=== PATIENT | female | born 1990 | race Caucasian/White ===

== ENCOUNTER 2018-12-11 17:48 | Emergency (ER) | payer SELFPAY ==
--- NOTE | 2018-12-11 18:27 | EKG REPORT ---
SEVERITY:- ABNORMAL ECG - SINUS RHYTHM INCOMPLETE RIGHT BUNDLE BRANCH BLOCK : Confirmed by: Kavon Webb MD 11-Dec-2018 18:27:03
[2018-12-11 18:48] LABS: ABSOLUTE BASOPHILS # (AUTO) 0.1 10^3/uL (0.0-0.2); ABSOLUTE EOSINOPHILS # (AUTO) 0.1 10^3/uL (0.0-0.6); ABSOLUTE LYMPHOCYTES (AUTO) 2.2 10^3/uL (0.5-4.7); ABSOLUTE MONOCYTES (AUTO) 0.8 10^3/uL (0.1-1.4); ABSOLUTE NEUT (AUTO) 6.4 10^3/uL (1.7-8.2); BASOPHILS % (AUTO) 0.7 % (0-2); EOSINOPHILS % (AUTO) 0.9 % (0-6); HEMATOCRIT 36.1 % (36.0-47.0); HEMOGLOBIN 12.6 g/dL (12.0-15.5); LYMPHOCYTES % (AUTO) 23.4 % (13-45); MEAN CORPUSCULAR HEMOGLOBIN 29.9 pg (27.0-33.4); MEAN CORPUSCULAR VOLUME 85 fl (80-97); MONOCYTES % (AUTO) 8.1 % (3-13); PLATELET COUNT 220 10^3/uL (150-450); RED BLOOD COUNT 4.22 10^6/uL (3.72-5.28); RED CELL DISTRIBUTION WIDTH 13.7 % (11.5-14.0); SEGMENTED NEUTROPHILS % (AUTO) 66.9 % (42-78); TOTAL CELLS COUNTED % (AUTO) 100 %; WHITE BLOOD COUNT 9.6 10^3/uL (4.0-10.5)
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
[2018-12-11 19:06] LABS: ALANINE AMINOTRANSFERASE 19 U/L (9-52); ALBUMIN 4.7 g/dL (3.5-5.0); ALKALINE PHOSPHATASE 60 U/L (38-126); ANION GAP 10 (5-19); ASPARTATE AMINO TRANSFERASE 15 U/L (14-36); BILIRUBIN,DIRECT 0.2 mg/dL (0.0-0.4); BILIRUBIN,TOTAL 0.9 mg/dL (0.2-1.3); BLOOD UREA NITROGEN 12 mg/dL (7-20); CARBON DIOXIDE 24 mmol/L (22-30); CHLORIDE 107 mmol/L (98-107); GLUCOSE 89 mg/dL (75-110); POTASSIUM 3.7 mmol/L (3.6-5.0); SODIUM 141.4 mmol/L (137-145); TOTAL PROTEIN 7.4 g/dL (6.3-8.2)
[2018-12-11] MEDS ORDERED: DIAZEPAM 5 MG TABLET PO ONE (19:45)
[2018-12-11] MEDS ORDERED: LIDOCAINE 5% (700 MG) TRANSDERMAL ADH..PATCH TP ONE (19:45)
[2018-12-11 20:02] LABS: APPEARANCE,URINE SLIGHTLY-CLOUDY; BILIRUBIN,URINE NEGATIVE (NEGATIVE); COLOR,URINE YELLOW; GLUCOSE, URINE NEGATIVE (NEGATIVE); KETONES,URINE 20 mg/dL (NEGATIVE); LEUKOCYTE ESTERASE,URINE NEGATIVE (NEGATIVE); NITRITE,URINE NEGATIVE (NEGATIVE); PROTEIN,URINE NEGATIVE (NEGATIVE); UROBILINOGEN,URINE NEGATIVE mg/dL (<2.0)
--- NOTE | 2018-12-11 20:37 | ER Document Report ---
ED General - General Chief Complaint: Breathing Difficulty Stated Complaint: TROUBLE BREATHING Time Seen by Provider: 12/11/18 19:33 Notes: Patient is a 28-year-old female with past medical history of anxiety and panic attacks who presents with anxiety and feelings like she cannot breathe. Patient states that her symptoms started shortly prior to arrival. States that she had associated chest tightness and feeling like she could not get enough air in. Symptoms were regarded as severe and constant when present have abated somewhat since onset. States that she felt extremely anxious during this episode and that this feels very similar to when she had panic attacks in the past. Nothing has been noted to improve her symptoms, states no obvious triggering factor. Has not seen her primary doctor regarding today's concerns. Denies any history of DVT or pulmonary embolus. Does not use any form of estrogen. Denies any pleuritic discomfort or distinct chest discomfort. TRAVEL OUTSIDE OF THE [place] IN LAST 30 DAYS: No Past Medical History - General Information source: Patient - Social History Smoking Status: Current Some Day Smoker Chew tobacco use (# tins/day): No Frequency of alcohol use: Rare Drug Abuse: None Lives with: Spouse/Significant other Family History: Reviewed & Not Pertinent Patient has suicidal ideation: No Patient has homicidal ideation: No Renal/ Medical History: Denies: Hx Peritoneal Dialysis Past Surgical History: Reports: Hx Tonsillectomy Review of Systems - Review of Systems Notes: Constitutional: Negative for fever. HENT: Negative for sore throat. Eyes: Negative for visual changes. Cardiovascular: Negative for chest pain. Respiratory: Positive for shortness of breath. Gastrointestinal: Negative for abdominal pain, vomiting or diarrhea. Genitourinary: Negative for dysuria. Musculoskeletal: Negative for back pain. Skin: Negative for rash. Neurological: Negative for headaches, weakness or numbness. 10 point ROS negative except as marked above and in HPI. Physical Exam - Vital signs Vitals: Temp Pulse BP Pulse Ox 98.4 F 129 H 138/98 H 96 12/11/18 17:52 12/11/18 17:52 12/11/18 17:52 12/11/18 17:52 Interpretation: Tachycardic Notes: PHYSICAL EXAMINATION: GENERAL: Well-appearing, well-nourished and in no acute distress. HEAD: Atraumatic, normocephalic. EYES: Pupils equal round and reactive to light, extraocular movements intact, sclera anicteric, conjunctiva are normal. ENT: nares patent, oropharynx clear without exudates. Moist mucous membranes. NECK: Normal range of motion, supple without lymphadenopathy LUNGS: Breath sounds clear to auscultation bilaterally and equal. No wheezes rales or rhonchi. HEART: Regular rate and rhythm without murmurs ABDOMEN: Soft, nontender, normoactive bowel sounds. No guarding, no rebound. No masses appreciated. EXTREMITIES: Normal range of motion, no pitting or edema. No cyanosis. NEUROLOGICAL: No focal neurological deficits. Moves all extremities spontaneously and on command. PSYCH: Anxious SKIN: Warm, Dry, normal turgor, no rashes or lesions noted. Course - Re-evaluation Re-evalutation: 12/11/18 20:34 Patient presents with 2 weeks of intermittent chest heaviness, throat tightness and feeling like she cannot breathe. Patient admits to feeling extremely anxious and believes that this is the cause of her symptoms. At the time of presentation patient admits that she was having acute panic attack and her initial heart rate was noted to be markedly elevated although this has spontaneously resolved since she stays calm down. Heart rate a time my assessment is a 79 bpm. Low clinical suspicion for ACS given clinical history, exam, EKG without ST elevations or depressions, and negative initial troponin. HEART score less than or equal to 3. PE also seems unlikely given clinical history, absence of tachycardia or dyspnea. Patient is PERC criteria negative at time of my evaluation. CXR without evidence of pneumothorax or pneumonia. No widened mediastinum. Aortic dissection also seems unlikely given history, symmetric pulses, CXR, and vitals. Patient has had much improvement after symptom medic treatment with anxiolysis here in the emergency department. Do not believe serial troponin markers are indicated given duration of symptoms and low clinical suspicion for ACS. At this time will discharge with return precautions and follow-up recommendations. Verbal discharge instructions given a the bedside and opportunity for questions given. Medication warnings reviewed. Patient is in agreement with this plan and has verbalized understanding of return precautions and the need for primary care follow-up in the next 24-72 hours. - Vital Signs Vital signs: Temp Pulse Resp BP Pulse Ox 97.8 F 129 H 17 133/82 H 98 12/11/18 21:12 12/11/18 17:52 12/11/18 22:26 12/11/18 22:26 12/11/18 22:26 - Laboratory Result Diagrams: 12/11/18 18:36 12/11/18 18:36 Laboratory results interpreted by me: 12/11/18 19:41 Urine Ketones 20 H Urine Blood SMALL H - Diagnostic Test Radiology reviewed: Image reviewed, Reports reviewed Radiology results interpreted by me: 12/11/18 20:36 Chest x-ray: No acute infiltrate or pneumothorax - EKG Interpretation by Me Additional EKG results interpreted by me: 12/11/18 20:37 Sinus rhythm, rate 105, no ST elevations or depressions. QTC 450. Discharge - Discharge Clinical Impression: Difficulty breathing, Intermittent chest pain Condition: Good Disposition: HOME, SELF-CARE Additional Instructions: You were seen today for chest pain. The exact cause of your pain is unclear. However, based on your cardiac enzyme testing, chest x-ray, and EKG it does not appear that it is from an immediately life-threatening cause at this time. Although your testing here is normal is critical that you follow-up with your primary care physician for continued evaluation of this chest pain and possible stress testing. I recommended you see your physician within the next 24-48 hours to be evaluated for consideration of a stress test. Please return to emergency department immediately if you have worsening of your chest pain, shortness of breath, vomiting, become unable to exert yourself due to pain or difficulty breathing, you pass out, or have any pain that radiates into your arms, jaw, or back. Please also return if you have any additional symptoms that are concerning to you.
[2018-12-11] MEDS ORDERED: METOCLOPRAMIDE HCL INJ/PF 10 MG/2 ML SDV IV ONE (22:17)
[2018-12-11 22:45] VITALS: BP 133/82
--- NOTE | 2018-12-12 07:53 | EKG REPORT ---
SEVERITY:- NORMAL ECG - SINUS RHYTHM SINSUS ARRHYTHMIA : Confirmed by: Kavon Webb MD 12-Dec-2018 07:53:00
== END 2018-12-11 22:44 | disposition home or self-care (01) ==
LOC: ER 17:48
DX: R06.00 Dyspnea, unspecified (principal); R07.9 Chest pain, unspecified
CPT/HCPCS: 93005; 99285; 96374; 36415; 84703; 85025; 80053; 81001; 84484; 71045; 93010; J2765

== ENCOUNTER 2019-07-25 08:05 | Emergency (ER) | payer SELFPAY ==
[2019-07-25 09:43] LABS: APPEARANCE,URINE SLIGHTLY-CLOUDY; BILIRUBIN,URINE NEGATIVE (NEGATIVE); COLOR,URINE YELLOW; GLUCOSE, URINE NEGATIVE (NEGATIVE); KETONES,URINE TRACE mg/dL (NEGATIVE); PROTEIN,URINE NEGATIVE (NEGATIVE); URINE SPECIFIC GRAVITY 1.021; UROBILINOGEN,URINE NEGATIVE mg/dL (<2.0)
--- NOTE | 2019-07-25 09:55 | ER Document Report ---
HPI - HPI Time Seen by Provider: 07/25/19 09:54 Pain Level: 4 - GASTROINTESTINAL Gastrointestinal: REPORTS: Abdominal Pain - REPRODUCTIVE Reproductive: DENIES: : Past Medical History - Social History Smoking Status: Never Smoker Chew tobacco use (# tins/day): No Frequency of alcohol use: None Drug Abuse: None Family History: Reviewed & Not Pertinent Patient has suicidal ideation: No Patient has homicidal ideation: No Renal/ Medical History: Denies: Hx Peritoneal Dialysis Past Surgical History: Reports: Hx Tonsillectomy Vertical Provider Document - INFECTION CONTROL TRAVEL OUTSIDE OF THE [place] IN LAST 30 DAYS: No Course - Vital Signs Vital signs: Temp Pulse Resp BP Pulse Ox 98.2 F 54 L 16 132/81 H 99 07/25/19 08:17 07/25/19 08:17 07/25/19 08:17 07/25/19 08:17 07/25/19 08:17 - Laboratory Laboratory results interpreted by me: 07/25/19 09:25 Urine Ketones TRACE H Urine Ascorbic Acid 40 H
--- NOTE | 2019-07-25 09:59 | ER Document Report ---
ED General - General Chief Complaint: Back Pain Stated Complaint: BACK PAIN Time Seen by Provider: 07/25/19 09:54 Primary Care Provider: PABLO ELMORE DO [ACTIVE STAFF] - Follow up as needed ALIYA NIX MD [ACTIVE STAFF] - Follow up as needed TRAVEL OUTSIDE OF THE [place] IN LAST 30 DAYS: No - HPI Notes: 28-year-old female with a history of PCO S presents emergency room for complaints abdominal pain that feels like "previous ectopic ". Patient states pain is near lower back but is well as upper quadrants of her abdomen. Denies worse after eating. Denies any fevers or chills. Patient did report nausea this morning but no vomiting. 2 para 1. Patient states last menstrual period was June 14, she has irregular periods, does not think she is and has been trying to get for years and is unsuccessful. Patient did have entopic approximately 6 years ago. Denies fevers, chills, chest pain,palpitations, shortness of breath, dyspnea, vomiting, diarrhea, , hematuria,blurred vision, double vision, loss of vision, speech changes, LH, dizziness, syncope, headaches, wheezing, ST, URI, neck pain, weakness, bowel or bladder dysfunction, saddle anesthesia, numbness or tingling in bilateral upper or lower extremities equally, muscle paralysis, weakness in bilateral upper or lower extremities equally or rash. - Related Data Allergies/Adverse Reactions: No Known Allergies Allergy (Unverified 07/25/19 08:45) Home Medications: Multivitamin Past Medical History - General Information source: Patient - Social History Smoking Status: Never Smoker Chew tobacco use (# tins/day): No Frequency of alcohol use: None Drug Abuse: None Family History: Reviewed & Not Pertinent Patient has suicidal ideation: No Patient has homicidal ideation: No Renal/ Medical History: Denies: Hx Peritoneal Dialysis Past Surgical History: Reports: Hx Tonsillectomy Review of Systems - Review of Systems Constitutional: See HPI EENT: No symptoms reported Cardiovascular: No symptoms reported Respiratory: No symptoms reported Gastrointestinal: See HPI Genitourinary: No symptoms reported Female Genitourinary: No symptoms reported Musculoskeletal: No symptoms reported Skin: No symptoms reported Hematologic/Lymphatic: No symptoms reported Neurological/Psychological: No symptoms reported Physical Exam - Vital signs Vitals: Temp Pulse Resp BP Pulse Ox 98.2 F 54 L 16 132/81 H 99 07/25/19 08:17 07/25/19 08:17 07/25/19 08:17 07/25/19 08:17 07/25/19 08:17 - Notes Notes: PHYSICAL EXAMINATION: reviewed vital signs by RN GENERAL: Well-appearing, well-nourished and in no acute distress. HEAD: Atraumatic, normocephalic. EYES: Pupils equal round and reactive to light, extraocular movements intact, conjunctiva are normal. ENT: Nares patent, oropharynx clear without exudates. Moist mucous membranes. NECK: Normal range of motion, supple without lymphadenopathy LUNGS: Breath sounds clear to auscultation bilaterally and equal. No wheezes rales or rhonchi. HEART: Regular rate and rhythm without murmurs ABDOMEN: right upper quadrant abdominal pain soft, nondistended abdomen. No guarding, no rebound. No masses appreciated. No CVA tenderness appreciated Female : deferred Musculoskeletal: Normal range of motion, no pitting or edema. No cyanosis. NEUROLOGICAL: Cranial nerves grossly intact. Normal speech, normal gait. Normal sensory, motor exams PSYCH: Normal mood, normal affect. SKIN: Warm, Dry, normal turgor, no rashes or lesions noted. Course - Re-evaluation Re-evalutation: 07/25/19 14:46 Afebrile vital stable no distress. Nurse's notes reviewed. Urine does show that patient is in fact positive for , serum hCG is 167, patient is likely in the very beginnings of her . CBC negative for leukocytosis or anemia, CMP negative for hepatic or renal dysfunction, lipase negative. Transvaginal ultrasound negative for any acute findings, no ectopic or intrauterine noted however patient is very early in her . Advised to recheck a serum hCG as well as a pelvic ultrasound today determine if patient is experiencing ectopic especially so she is experiencing any lower ab dominal pain. Discussed the importance of keeping on top of this because she states she has had a history of an ectopic in the past with routine ultrasounds and routine serum hCGs cancel CT abdomen pelvis, did not abdominal ultrasound which was unremarkable aside from showing a fatty liver, which patient states she was aware of. Patient was made aware that she is in fact , to start vitamins. Patient was happy for this finding. States she will follow-up with a PASS WORKER in her primary care provider within the next few days. Discussed to avoid any alcohol, illicit drug use, caffeine or other substances to avoid . Patient given vitamin to start da fely. After performing a Medical Screening Examination, I estimate there is LOW risk for ACUTE APPENDICITIS, BOWEL OBSTRUCTION, ACUTE CHOLECYSTITIS, PERFORATED DIVERTICULITIS, INCARCERATED HERNIA, PANCREATITIS, PELVIC INFLAMMATORY DISEASE, PERFORATED ULCER, ECTOPIC , or TUBO-OVARIAN ABSCESS, thus I consider the discharge disposition reasonable. Also, there is no evidence or peritonitis, sepsis, or toxicity. I have reevaluated this patient multiple times and no significant life threatening changes are noted. The patient and I have discussed the diagnosis and risks, and we agree with discharging home with close follow-up with the understanding that symptoms and presentations can change. We also discussed returning to the Emergency Department immediately if new or worsening symptoms occur. We have discussed the symptoms which are most concerning (e.g., bloody stool, fever, changing or worsening pain, vomiting) that necessitate immediate return. - Vital Signs Vital signs: Temp Pulse Resp BP Pulse Ox 98.4 F 85 20 133/79 H 97 07/25/19 13:53 07/25/19 13:53 07/25/19 13:53 07/25/19 13:55 07/25/19 13:53 - Laboratory Result Diagrams: 07/25/19 10:38 07/25/19 10:38 Laboratory results interpreted by me: 07/25/19 07/25/19 07/25/19 09:25 09:25 10:38 Creatinine 0.51 L Beta HCG, Quant Urine Ketones TRACE H Urine Ascorbic Acid 40 H Urine HCG, Qual POSITIVE H 07/25/19 10:38 Creatinine Beta HCG, Quant 167.68 H Urine Ketones Urine Ascorbic Acid Urine HCG, Qual Discharge - Discharge Clinical Impression: , Abdominal pain Condition: Stable Disposition: HOME, SELF-CARE Additional Instructions: You tested positive for , advised to start prenatals. You will need a repeat hCG as well as a transvaginal ultrasound in 48 hours for reevaluation since you are newly , unable to tell if you are having ectopic or having an intrauterine due to the fact that he is newly . Ultrasound of your abdomen was negative, did show fatty liver which is likely a chronic finding. Advised to follow-up with an PASS WORKER as well as your primary care provider. Avoid any alcohol, smoking or any illicit substances. Increase oral hydration. Return to the emergency room if your symptoms become worse such as fevers, worsening abdominal pain. Return immediately for any new or worsening symptoms. Follow up with primary care provider, call tomorrow to make followup appointment. Prescriptions: Vits96/Iron Fum/Folic [ Tablet] 1 each PO DAILY #30 tablet Forms: Return to Work Referrals: ALIYA NIX MD [ACTIVE STAFF] - Follow up as needed PABLO ELMORE DO [ACTIVE STAFF] - Follow up as needed
[2019-07-25 10:47] LABS: ABSOLUTE BASOPHILS # (AUTO) 0.1 10^3/uL (0.0-0.2); ABSOLUTE EOSINOPHILS # (AUTO) 0.1 10^3/uL (0.0-0.6); ABSOLUTE LYMPHOCYTES (AUTO) 1.8 10^3/uL (0.5-4.7); ABSOLUTE MONOCYTES (AUTO) 0.6 10^3/uL (0.1-1.4); ABSOLUTE NEUT (AUTO) 5.4 10^3/uL (1.7-8.2); BASOPHILS % (AUTO) 0.8 % (0-2); EOSINOPHILS % (AUTO) 1.8 % (0-6); HEMATOCRIT 38.2 % (36.0-47.0); HEMOGLOBIN 13.2 g/dL (12.0-15.5); MEAN CORPUSCULAR HEMOGLOBIN 29.7 pg (27.0-33.4); MEAN CORPUSCULAR HGB CONC 34.7 g/dL (32.0-36.0); MEAN CORPUSCULAR VOLUME 86 fl (80-97); MONOCYTES % (AUTO) 7.3 % (3-13); PLATELET COUNT 200 10^3/uL (150-450); RED BLOOD COUNT 4.45 10^6/uL (3.72-5.28); RED CELL DISTRIBUTION WIDTH 13.3 % (11.5-14.0); SEGMENTED NEUTROPHILS % (AUTO) 68.1 % (42-78); TOTAL CELLS COUNTED % (AUTO) 100 %
[2019-07-25 11:13] LABS: ALBUMIN 4.7 g/dL (3.5-5.0); ALKALINE PHOSPHATASE 69 U/L (38-126); ANION GAP 13 (5-19); ASPARTATE AMINO TRANSFERASE 19 U/L (14-36); BILIRUBIN,DIRECT 0.2 mg/dL (0.0-0.4); BILIRUBIN,TOTAL 0.7 mg/dL (0.2-1.3); BLOOD UREA NITROGEN 14 mg/dL (7-20); CALCIUM 9.9 mg/dL (8.4-10.2); CARBON DIOXIDE 22 mmol/L (22-30); CHLORIDE 104 mmol/L (98-107); GLUCOSE 94 mg/dL (75-110); POTASSIUM 4.1 mmol/L (3.6-5.0); TOTAL PROTEIN 7.5 g/dL (6.3-8.2)
--- NOTE | 2019-07-25 11:18 | RADIOLOGY REPORT (SQ) ---
EXAM DESCRIPTION: U/S NON OB PEL TV W/DOPPLER COMPLETED DATE/TIME: 07/25/2019 11:02 am REASON FOR STUDY: pelvic pain,"feels like an ectopic" hx of ectopic COMPARISON: None. TECHNIQUE: Dynamic and static grayscale images acquired of the pelvis via transvaginal approach and recorded on PACS. Additional selected color Doppler and spectral images recorded. LIMITATIONS: None. FINDINGS: UTERUS: Contour normal. No mass. ENDOMETRIAL STRIPE: No focal or generalized thickening. No masses. CERVIX: No nabothian cysts. RIGHT OVARY AND DOPPLER: Normal size. No worrisome masses. Normal arterial vascular flow without evid ence for torsion. LEFT OVARY AND DOPPLER: Normal size. No worrisome masses. Normal arterial vascular flow without evide nce for torsion. FREE FLUID: None noted. OTHER: No other significant finding. MEASUREMENTS: UTERUS: 4.8 x 6.0 x 7.5 cm. ENDOMETRIAL STRIPE: 1.6 cm. RIGHT OVARY: 1.9 x 2.1 x 3.1 cm. LEFT OVARY: 1.2 x 1.3 x 2.7 cm. IMPRESSION: NORMAL TRANSVAGINAL PELVIC ULTRASOUND. TECHNICAL DOCUMENTATION: JOB ID: [id number] [employer]- All Rights Reserved Rev-11/17 Reading location - IP/workstation name: [email or web address]
--- NOTE | 2019-07-25 12:49 | RADIOLOGY REPORT (SQ) ---
EXAM DESCRIPTION: U/S ABDOMEN LTD W/DOPPLER COMPLETED DATE/TIME: 07/25/2019 12:38 pm REASON FOR STUDY: RUQ abd pain COMPARISON: None. TECHNIQUE: Dynamic and static grayscale images acquired of the abdomen and recorded on PACS. Additio nal selected color Doppler and spectral images recorded. LIMITATIONS: None. FINDINGS: PANCREAS: No masses. Visualized pancreatic duct normal caliber. LIVER: Echotexture is coarse with increased echogenicity consistent with fatty infiltration. LIVER VASCULATURE: Normal directional flow of the main portal vein and hepatic veins. GALLBLADDER: No stones. Normal wall thickness. No pericholecystic fluid. ULTRASOUND-DETECTED PEDROZA'S SIGN: Negative. INTRAHEPATIC DUCTS AND COMMON DUCT: CBD and intrahepatic ducts normal caliber. No filling defects. INFERIOR VENA CAVA: Normal flow. AORTA: No aneurysm. RIGHT KIDNEY: Normal size. Normal echogenicity. No solid or suspicious masses. No hydronephros is. No calcifications. PERITONEAL AND PLEURAL SPACES: No ascites or effusions. OTHER: No other significant finding. IMPRESSION: FATTY LIVER. NO OTHER SIGNIFICANT FINDING. TECHNICAL DOCUMENTATION: JOB ID: [id number]- All Rights Reserved Reading location - IP/workstation name: [email or web address]
[2019-07-25 13:56] VITALS: BP 133/79
== END 2019-07-25 13:55 | disposition home or self-care (01) ==
LOC: ER 08:05
DX: O26.891 Other specified pregnancy related conditions, first trimester (principal); R10.11 Right upper quadrant pain; R11.0 Nausea; O99.611 Diseases of the digestive system complicating pregnancy, first trimester; K76.0 Fatty (change of) liver, not elsewhere classified; Z3A.01 Less than 8 weeks gestation of pregnancy; Z87.59 Personal history of other complications of pregnancy, childbirth and the puerperium; Z79.899 Other long term (current) drug therapy
CPT/HCPCS: 36415; 76705; 76830; 80053; 81001; 81025; 83690; 84702; 85025; 93976; 99284

== ENCOUNTER 2019-09-04 08:45 | Emergency (ER) | payer MEDICAID ==
[2019-09-04] MEDS ORDERED: METOCLOPRAMIDE HCL INJ/PF 10 MG/2 ML SDV IV ONE (09:58)
--- NOTE | 2019-09-04 10:01 | ER Document Report ---
ED General - General Chief Complaint: Abdominal Pain Stated Complaint: ABDOMINAL CRAMPING Time Seen by Provider: 09/04/19 09:38 TRAVEL OUTSIDE OF THE [place] IN LAST 30 DAYS: No - HPI Notes: Patient is a 29-year-old female approximately 10 weeks who presents complaining of having nasal congestion/discharge, low-grade fever, cough, body aches that began 2 days ago. She is also had some nausea, vomiting, and diarrhea. Patient does report right upper quadrant pain as well as some mild lower pelvic pain. She has not had any vaginal bleeding, odor, or discharge. She has noticed darker colored urine. Denies drug allergies. Denies any headache, neck pain, sore throat, chest pain, palpitations, syncope, shortness of breath, wheeze, dyspnea, urinary retention, dysuria, hematuria, back pain, or rash. - Related Data Allergies/Adverse Reactions: No Known Allergies Allergy (Unverified 07/25/19 08:45) Home Medications: only taking vitamins Past Medical History - Social History Smoking Status: Never Smoker Chew tobacco use (# tins/day): No Frequency of alcohol use: None Drug Abuse: None Family History: Reviewed & Not Pertinent Patient has suicidal ideation: No Patient has homicidal ideation: No Renal/ Medical History: Denies: Hx Peritoneal Dialysis Past Surgical History: Reports: Hx Tonsillectomy Review of Systems - Review of Systems -: Yes All other systems reviewed and negative Physical Exam - Vital signs Vitals: Temp Pulse Resp BP Pulse Ox 98.1 F 61 18 135/76 H 99 09/04/19 09:10 09/04/19 09:10 09/04/19 09:10 09/04/19 09:10 09/04/19 09:10 - Notes Notes: PHYSICAL EXAMINATION: GENERAL: Well-appearing, well-nourished and in no acute distress. A&Ox4. Answers questions appropriately. Moves comfortably w/o notable distress HEAD: Atraumatic, normocephalic. EYES: Pupils equal round and reactive to light, extraocular movements intact, sclera anicteric, conjunctiva are normal. ENT: Nares patent and with clear discharge. oropharynx no erythema without exudates. No tonsilar hypertrophy without erythema or exudate. No palatine shift. Uvula midline. No tongue protrusion. No drooling, hoarseness, or airway compromise. Moist mucous membranes. NECK: Normal range of motion, supple without lymphadenopathy. No rig idity/meningismus. LUNGS: Breath sounds clear to auscultation bilaterally and equal. No wheezes ra les or rhonchi. No retractions HEART: Regular rate and rhythm without murmurs, rubs, gallops. ABDOMEN: Soft, nondistended abdomen. No guarding, no rebound. Normal bowel sounds present. No CVA tenderness bilaterally. + RUQ tenderness. + mild tenderness lower pelvic b/l. NEUROLOGICAL: Normal speech, normal gait. PSYCH: Normal mood, normal affect. SKIN: Warm, Dry, normal turgor, no rashes or lesions noted. Course - Re-evaluation Re-evalutation: 09/04/19 12:11 Patient is an afebrile, well-hydrated, 29-year-old female who presents to the ED with pelvic pain in (Living IUP), RUQ pain, n/v, acute URI. Overall I suspect her illness to be viral with the suspicion of influenza with report of fever/body aches associated. Vitals are acceptable without any significant tachycardia, tachypnea, or hypoxia. PE is otherwise unremarkable. CBC, CMP, lipase unremarkable for acute pathology. HCG appropriate. TVUS shows IUP appro x10wk 3d. RUQ US negative. UA acceptable. Pt received fluids and reglan. Patient is nontoxic-appearing is tolerating p.o. without any difficulties. No other labs or imaging warranted at this time based on H&P. Low suspicion/risk for acute appendicitis, bowel obstruction, acute cholecystitis, acute cholangitis, perforated diverticulitis, incarcerated hernia, pancreatitis, pe rforated ulcer, peritonitis, sepsis, pelvic inflammatory disease, ectopic , tubo-ovarian abscess, ovarian torsion, or other systemic emergent condition at this time. Patient is aware that her condition can change from initial presentation and she needs to monitor symptoms closely and seek medical attention if any acute changes. I did review the risk and benefit with the use of Tamiflu was estimated cost and potential side effects. Patient requested Tamiflu after discussion. Conservative measures otherwise for symptoms. Recheck with your PCM/OBGYN in 3-5 days. Return to the ED with any worsening/concerning symptoms otherwise as reviewed in discharge. Patient is in agreement. - Vital Signs Vital signs: Temp Pulse Resp BP Pulse Ox 98.1 F 61 18 135/76 H 99 09/04/19 09:10 09/04/19 09:10 09/04/19 09:10 09/04/19 09:10 09/04/19 09:10 - Laboratory Result Diagrams: 09/04/19 10:45 09/04/19 10:45 Laboratory results interpreted by me: 09/04/19 09/04/19 09:35 10:45 Creatinine 0.43 L AST 44 H ALT 78 H Beta HCG, Quant 86577.00 H Urine Protein 30 H Urine Ketones 80 H Urine Urobilinogen 2.0 H Discharge - Discharge Clinical Impression: Acute URI, RUQ pain Nausea & vomiting Qualifiers: Vomiting type: unspecified Vomiting Intractability: non-intractable Qualified Code(s): R11.2 - Nausea with vomiting, unspecified Pelvic pain affecting Qualifiers: Trimester: first trimester Qualified Code(s): O26.891 - Other specified related conditions, first trimester; R10.2 - Pelvic and perineal pain Condition: Stable Disposition: HOME, SELF-CARE Additional Instructions: Maintain adequate fluid intake tylenol/ibuprofen as needed alternating every 3 hours for fever/body ache over the counter cold medication as needed for symptoms Ripley diet. Humidified air may help Wash your hands regularly Wear a mask when coughing F/u: with your PCM/[employer] HOUSE OPERATOR in 3-5 days for a recheck Return to the ED with any uncontrollable/worsening fever, altered mental status/behavior, chest pain, palpitations, syncope, headache, neck pain/stiffness, shortness of breath, chest pains, wheezing, drooling, trouble swallowing/breathing, abdominal pain, n/v/d, rash, vaginal bleeding, or worsening/concerning symptoms otherwise. Prescriptions: Metoclopramide HCl [Reglan] 10 mg PO BID PRN #6 tablet PRN Reason: Oseltamivir Phosphate [Tamiflu 75 mg Capsule] 75 mg PO BID #10 capsule Forms: Elevated Blood Pressure Referrals: [facility] [Provider Group] - Follow up in 3-5 days
[2019-09-04] MEDS: NORMAL SALINE 1000 ML 1,000 ML IV PRN ×2 (10:41→11:56)
[2019-09-04 10:49] LABS: APPEARANCE,URINE SLIGHTLY-CLOUDY; BILIRUBIN,URINE NEGATIVE (NEGATIVE); COLOR,URINE AMBER; GLUCOSE, URINE NEGATIVE (NEGATIVE); KETONES,URINE 80 mg/dL (NEGATIVE); PROTEIN,URINE 30 mg/dL (NEGATIVE)
[2019-09-04 11:01] LABS: ABSOLUTE EOSINOPHILS # (AUTO) 0.3 10^3/uL (0.0-0.6); ABSOLUTE LYMPHOCYTES (AUTO) 1.5 10^3/uL (0.5-4.7); ABSOLUTE MONOCYTES (AUTO) 0.6 10^3/uL (0.1-1.4); ABSOLUTE NEUT (AUTO) 5.4 10^3/uL (1.7-8.2); BASOPHILS % (AUTO) 0.4 % (0-2); EOSINOPHILS % (AUTO) 3.9 % (0-6); HEMATOCRIT 37.1 % (36.0-47.0); HEMOGLOBIN 12.9 g/dL (12.0-15.5); LYMPHOCYTES % (AUTO) 18.6 % (13-45); MEAN CORPUSCULAR HEMOGLOBIN 29.9 pg (27.0-33.4); MEAN CORPUSCULAR HGB CONC 34.8 g/dL (32.0-36.0); MEAN CORPUSCULAR VOLUME 86 fl (80-97); MONOCYTES % (AUTO) 8.1 % (3-13); PLATELET COUNT 220 10^3/uL (150-450); RED BLOOD COUNT 4.32 10^6/uL (3.72-5.28); RED CELL DISTRIBUTION WIDTH 13.6 % (11.5-14.0); TOTAL CELLS COUNTED % (AUTO) 100 %; WHITE BLOOD COUNT 7.8 10^3/uL (4.0-10.5)
--- NOTE | 2019-09-04 11:01 | RADIOLOGY REPORT (SQ) ---
EXAM DESCRIPTION: U/S ABDOMEN LIMITED W/O DOP COMPLETED DATE/TIME: 09/04/2019 10:43 am REASON FOR STUDY: RUQ pain COMPARISON: None. TECHNIQUE: Dynamic and static grayscale images acquired of the abdomen and recorded on PACS. Additio nal selected color Doppler and spectral images recorded. LIMITATIONS: None. FINDINGS: PANCREAS: No masses. Visualized pancreatic duct normal caliber. LIVER: Echogenic, as before. Suggestive of fatty parenchyma. No mass. Top normal size, just over 1 8 cm. LIVER VASCULATURE: Normal directional flow of the main portal vein and hepatic veins. GALLBLADDER: No stones. Normal wall thickness. No pericholecystic fluid. ULTRASOUND-DETECTED PEDROZA'S SIGN: Negative. INTRAHEPATIC DUCTS AND COMMON DUCT: CBD and intrahepatic ducts normal caliber. No filling defects. INFERIOR VENA CAVA: Normal flow. AORTA: No aneurysm. RIGHT KIDNEY: Normal size. Normal echogenicity. No solid or suspicious masses. No hydronephrosis. No calcifications. PERITONEAL AND RIGHT PLEURAL SPACE: No ascites or effusions. OTHER: No other significant findings. IMPRESSION: 1. No acute abnormality. 2. Fatty liver, as before. TECHNICAL DOCUMENTATION: JOB ID: [id number] 2010 [employer]- All Rights Reserved Reading location - IP/workstation name: [email or web address]
--- NOTE | 2019-09-04 11:04 | RADIOLOGY REPORT (SQ) ---
EXAM DESCRIPTION: U/S OB TRANSVAG W/DOPPLER COMPLETED DATE/TIME: 09/04/2019 10:43 am REASON FOR STUDY: Pelvic pain, approx 10wks COMPARISON: None. TECHNIQUE: Transabdominal static and realtime grayscale images acquired of the pelvis. Additional se lected spectral and color Doppler images recorded. All images stored on PACs. bHCG: Not available. CLINICAL DATES: 10 week 0 day LIMITATIONS: None. FINDINGS: FETUS: Single Living intrauterine . ULTRASOUND EGA: 10 week 3 day ULTRASOUND RENARD: 03/29/2020 EFW: Not applicable less than 20 weeks. CRL: 3.5 cm FHR: 158 beats per minute. SURVEY: Too early to assess. AMNIOTIC FLUID: Adequate amount. PLACENTA: Not yet developed due to early gestation. SUBCHORIONIC BLEED: No. SIZE OF BLEED: Not applicable. UTERUS: No masses. No anomalies. CERVICAL LENGTH: 3.3 cm. Closed. RIGHT ADNEXA: Ovary not identified due to poor acoustical window. No adnexal free fluid. No adnexal masses. LEFT ADNEXA: Ovary not identified due to poor acoustical window. No adnexal free fluid. No adnexal masses. FREE FLUID: None. OTHER: No other significant finding. IMPRESSION: LIVING INTRAUTERINE . EGA 10 week 3 day Trimester of : First trimester - 0 to 13 weeks. TECHNICAL DOCUMENTATION: JOB ID: [id number] 2010 [employer] All Rights Reserved Reading location - IP/workstation name: [email or web address]
[2019-09-04 11:17] LABS: ALBUMIN 4.6 g/dL (3.5-5.0); ALKALINE PHOSPHATASE 72 U/L (38-126); ANION GAP 11 (5-19); ASPARTATE AMINO TRANSFERASE 44 U/L (14-36); BILIRUBIN,TOTAL 0.7 mg/dL (0.2-1.3); BLOOD UREA NITROGEN 8 mg/dL (7-20); CALCIUM 9.7 mg/dL (8.4-10.2); CARBON DIOXIDE 25 mmol/L (22-30); CHLORIDE 102 mmol/L (98-107); GLUCOSE 87 mg/dL (75-110); POTASSIUM 3.7 mmol/L (3.6-5.0); TOTAL PROTEIN 7.6 g/dL (6.3-8.2)
[2019-09-04 12:15] VITALS: BP 126/52
== END 2019-09-04 12:36 | disposition home or self-care (01) ==
LOC: ER 08:45
DX: O26.891 Other specified pregnancy related conditions, first trimester (principal); J06.9 Acute upper respiratory infection, unspecified; R10.11 Right upper quadrant pain; R10.2 Pelvic and perineal pain; R09.81 Nasal congestion; R50.9 Fever, unspecified; M79.10 Myalgia, unspecified site; O21.9 Vomiting of pregnancy, unspecified; Z3A.10 10 weeks gestation of pregnancy
CPT/HCPCS: 99284; 96361; 96374; 36415; 84702; 83690; 85025; 80053; 81001; 76817; 76705; 93976; J2765; J7030

== ENCOUNTER 2019-11-11 08:06 | Emergency (ER) | payer OTHER, MEDICAID ==
[2019-11-11 08:13] VITALS: BP 119/66
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
[2019-11-11] MEDS ORDERED: NORMAL SALINE 1000 ML 1,000 ML IV ONE (08:25)
== END 2019-11-11 08:46 | disposition home or self-care (01) ==
LOC: ER 08:06
DX: O9A.212 Injury, poisoning and certain other consequences of external causes complicating pregnancy, second trimester (principal); V89.2XXA Person injured in unspecified motor-vehicle accident, traffic, initial encounter; Z3A.20 20 weeks gestation of pregnancy
CPT/HCPCS: 99281

== ENCOUNTER 2019-11-28 08:26 | Outpatient (CLI) | payer MEDICAID ==
[2019-11-28 09:12] LABS: APPEARANCE,URINE CLOUDY; BILIRUBIN,URINE NEGATIVE (NEGATIVE); COLOR,URINE YELLOW; GLUCOSE, URINE NEGATIVE (NEGATIVE); KETONES,URINE TRACE mg/dL (NEGATIVE); LEUKOCYTE ESTERASE,URINE SMALL (NEGATIVE); NITRITE,URINE NEGATIVE (NEGATIVE); PROTEIN,URINE 100 mg/dL (NEGATIVE); URINE SPECIFIC GRAVITY 1.012; UROBILINOGEN,URINE NEGATIVE mg/dL (<2.0)
[2019-11-28] MEDS ORDERED: PROMETHAZINE HCL INJ 25 MG/1 ML VIAL IV ONE (09:26)
[2019-11-28] MEDS ORDERED: PROMETHAZINE HCL INJ 25 MG/1 ML VIAL ONE (09:26)
[2019-11-28 09:32] LABS: URINE AMPHETAMINES SCREEN NEGATIVE; URINE BARBITURATES SCREEN NEGATIVE; URINE BENZODIAZEPINES SCREEN NEGATIVE; URINE COCAINE SCREEN NEGATIVE; URINE METHADONE SCREEN NEGATIVE; URINE PHENCYCLIDINE SCREEN NEGATIVE
[2019-11-28 09:38] LABS: BACTERIA (WET MOUNT) 4+ BACTERIA SEEN; EPITHELIALS (WET MOUNT) 4+ EPITHELIALS SEEN; RBCS (WET MOUNT) NO RBCS SEEN; T.VAGINALIS (WET MOUNT) NO TRICHOMONAS SEEN; WBCS (WET MOUNT) 1+ WBCS SEEN; YEAST (WET MOUNT) NO YEAST SEEN
[2019-11-28 09:46] LABS: URINE MARIJUANA (THC) SCREEN UNCONFIRMED POSITIVE
[2019-11-28 09:52] LABS: ABSOLUTE EOSINOPHILS # (AUTO) 0.1 10^3/uL (0.0-0.6); ABSOLUTE LYMPHOCYTES (AUTO) 1.1 10^3/uL (0.5-4.7); ABSOLUTE MONOCYTES (AUTO) 0.5 10^3/uL (0.1-1.4); ABSOLUTE NEUT (AUTO) 8.2 10^3/uL (1.7-8.2); BASOPHILS % (AUTO) 0.2 % (0-2); HEMATOCRIT 33.6 % (36.0-47.0); HEMOGLOBIN 11.8 g/dL (12.0-15.5); LYMPHOCYTES % (AUTO) 11.2 % (13-45); MEAN CORPUSCULAR HEMOGLOBIN 30.1 pg (27.0-33.4); MEAN CORPUSCULAR HGB CONC 35.1 g/dL (32.0-36.0); MEAN CORPUSCULAR VOLUME 86 fl (80-97); PLATELET COUNT 183 10^3/uL (150-450); RED BLOOD COUNT 3.92 10^6/uL (3.72-5.28); SEGMENTED NEUTROPHILS % (AUTO) 82.6 % (42-78); TOTAL CELLS COUNTED % (AUTO) 100 %; WHITE BLOOD COUNT 9.9 10^3/uL (4.0-10.5)
--- NOTE | 2019-11-28 10:09 | RADIOLOGY REPORT (SQ) ---
EXAM DESCRIPTION: U/S OB LIMITED IMAGES COMPLETED DATE/TIME: 11/28/2019 9:59 am REASON FOR STUDY: IUP @ 22wga with abdominal/contraction like pain COMPARISON: None. TECHNIQUE: Limited transvaginal and transabdominal grayscale ultrasound for evaluation of specific r equested obstetrical parameters. LIMITATIONS: None. FINDINGS: CERVICAL LENGTH: 4.1 cm Closed. ALEJANDRA: Largest pocket 4.9 cm. FHR: 145 beats per minute. PRESENTATION: Breech. PLACENTA: Anterior, low lying. ANATOMY: Not assessed OTHER: No other significant findings. IMPRESSION: LIMITED OBSTETRICAL ULTRASOUND WITH MEASURED PARAMETERS DELINEATED ABOVE. Trimester of : Second trimester - 13 weeks 1 day to 27 weeks 6 days. TECHNICAL DOCUMENTATION: JOB ID: [id number] 2010 [employer]- All Rights Reserved Reading location - IP/workstation name: [email or web address]
[2019-11-28 10:18] LABS: ALBUMIN 3.8 g/dL (3.5-5.0); ALKALINE PHOSPHATASE 131 U/L (38-126); AMYLASE 79 U/L (30-110); ANION GAP 8 (5-19); ASPARTATE AMINO TRANSFERASE 16 U/L (14-36); BILIRUBIN,TOTAL 0.3 mg/dL (0.2-1.3); BLOOD UREA NITROGEN 6 mg/dL (7-20); CALCIUM 9.4 mg/dL (8.4-10.2); CARBON DIOXIDE 21 mmol/L (22-30); CHLORIDE 107 mmol/L (98-107); GLUCOSE 104 mg/dL (75-110); POTASSIUM 3.9 mmol/L (3.6-5.0); TOTAL PROTEIN 6.6 g/dL (6.3-8.2)
[2019-11-28] MEDS ORDERED: LIDOCAINE 1% INJ-PF (10 MG/ML) 30 ML SDV INJ ONE (10:49)
[2019-11-28] MEDS ORDERED: CEFTRIAXONE INJ 500 MG VIAL IM ONE (10:49)
[2019-11-28] MEDS ORDERED: RINGERS SOLUTION,LACTATED 1,000 ML IV ONE (10:50)
[2019-11-28] MEDS ORDERED: HYDROXYZINE PAMOATE 50 MG CAPSULE PO ONE (10:51)
[2019-11-28] MEDS ORDERED: ONDANSETRON HCL INJ/PF 4 MG/2 ML SDV IV ONE (10:51)
[2019-11-28] MEDS ORDERED: LIDOCAINE HCL 1% INJ (FOR 1 GM VIAL) INJ ONE (11:00)
[2019-11-28] MEDS ORDERED: CEFTRIAXONE INJ 1000 MG VIAL IM ONE (11:00)
[2019-11-28] MEDS ORDERED: CEFTRIAXONE INJ 1000 MG VIAL ONE (11:06)
[2019-11-28] MEDS ORDERED: HYDROXYZINE PAMOATE 50 MG CAPSULE ONE (11:06)
[2019-11-28] MEDS ORDERED: LIDOCAINE 1% INJ-PF (10 MG/ML) 30 ML SDV ONE (11:07)
[2019-11-28] MEDS ORDERED: ONDANSETRON HCL INJ/PF 4 MG/2 ML SDV ONE (11:07)
[2019-11-28 11:08] LABS: CHLAM PCR NOT DETECTED (NOT DETECT)
== END 2019-11-28 12:48 | disposition home or self-care (01) ==
LOC: LC 08:26
PROVIDERS: ATTEND Student in an Organized Health Care Education/Training Program
DX: O99.89 Other specified diseases and conditions complicating pregnancy, childbirth and the puerperium (principal); N20.0 Calculus of kidney; M54.9 Dorsalgia, unspecified; Z3A.22 22 weeks gestation of pregnancy
CPT/HCPCS: 59899; 36415; 87210; 82150; 83690; 85025; 80053; 81001; 80307; 87491; 87591; 76815; G0480 ×2; J3490 ×2; J2550; J0696; J2405; 80349

== ENCOUNTER 2019-12-26 20:34 | Outpatient (CLI) | payer MEDICAID ==
[2019-12-26 21:36] LABS: APPEARANCE,URINE SLIGHTLY-CLOUDY; BILIRUBIN,URINE NEGATIVE (NEGATIVE); COLOR,URINE AMBER; GLUCOSE, URINE NEGATIVE (NEGATIVE); KETONES,URINE 80 mg/dL (NEGATIVE); LEUKOCYTE ESTERASE,URINE NEGATIVE (NEGATIVE); NITRITE,URINE NEGATIVE (NEGATIVE); PROTEIN,URINE 100 mg/dL (NEGATIVE); URINE SPECIFIC GRAVITY 1.029; UROBILINOGEN,URINE NEGATIVE mg/dL (<2.0)
[2019-12-26] MEDS ORDERED: ONDANSETRON HCL INJ/PF 4 MG/2 ML SDV ONE (21:45)
[2019-12-26 21:48] LABS: URINE AMPHETAMINES SCREEN NEGATIVE; URINE BENZODIAZEPINES SCREEN NEGATIVE; URINE COCAINE SCREEN NEGATIVE; URINE METHADONE SCREEN NEGATIVE; URINE PHENCYCLIDINE SCREEN NEGATIVE
[2019-12-26 21:58] LABS: URINE BARBITURATES SCREEN UNCONFIRMED POSITIVE; URINE MARIJUANA (THC) SCREEN UNCONFIRMED POSITIVE
[2019-12-26] MEDS ORDERED: PROMETHAZINE HCL INJ 25 MG/1 ML VIAL ONE (23:46)
[2019-12-26] MEDS ORDERED: MORPHINE SULFATE 10 MG/ML INJ ONE (23:46)
[2019-12-27] MEDS ORDERED: MAGNESIUM OXIDE 400 MG TABLET PO ONE (00:45)
[2019-12-27 00:55] LABS: ABSOLUTE EOSINOPHILS # (AUTO) 0.1 10^3/uL (0.0-0.6); ABSOLUTE LYMPHOCYTES (AUTO) 2.2 10^3/uL (0.5-4.7); ABSOLUTE MONOCYTES (AUTO) 0.8 10^3/uL (0.1-1.4); ABSOLUTE NEUT (AUTO) 8.9 10^3/uL (1.7-8.2); BASOPHILS % (AUTO) 0.2 % (0-2); LYMPHOCYTES % (AUTO) 18.2 % (13-45); MEAN CORPUSCULAR HGB CONC 34.5 g/dL (32.0-36.0); MEAN CORPUSCULAR VOLUME 87 fl (80-97); MONOCYTES % (AUTO) 6.9 % (3-13); PLATELET COUNT 143 10^3/uL (150-450); RED BLOOD COUNT 3.34 10^6/uL (3.72-5.28); RED CELL DISTRIBUTION WIDTH 13.9 % (11.5-14.0); SEGMENTED NEUTROPHILS % (AUTO) 73.7 % (42-78); TOTAL CELLS COUNTED % (AUTO) 100 %; WHITE BLOOD COUNT 12.1 10^3/uL (4.0-10.5)
[2019-12-27 01:27] LABS: ALBUMIN 3.1 g/dL (3.5-5.0); ALKALINE PHOSPHATASE 204 U/L (38-126); ANION GAP 5 (5-19); ASPARTATE AMINO TRANSFERASE 15 U/L (14-36); BILIRUBIN,TOTAL 0.4 mg/dL (0.2-1.3); BLOOD UREA NITROGEN 6 mg/dL (7-20); CALCIUM 8.9 mg/dL (8.4-10.2); CARBON DIOXIDE 22 mmol/L (22-30); CHLORIDE 109 mmol/L (98-107); GLUCOSE 126 mg/dL (75-110); POTASSIUM 3.5 mmol/L (3.6-5.0); TOTAL PROTEIN 5.6 g/dL (6.3-8.2)
[2019-12-27] MEDS ORDERED: DEXAMETHASONE SOD PHOS INJ 10 MG/1 ML VIAL IV ONE (06:16)
[2019-12-27] MEDS ORDERED: MAGNESIUM OXIDE 400 MG TABLET ONE (06:31)
[2019-12-27] MEDS ORDERED: DEXAMETHASONE SOD PHOS INJ 10 MG/1 ML VIAL ONE (06:32)
--- NOTE | 2019-12-27 08:47 | RADIOLOGY REPORT (SQ) ---
EXAM DESCRIPTION: CT HEAD WITHOUT IMAGES COMPLETED DATE/TIME: 12/27/2019 8:22 am REASON FOR STUDY: headaches for 2 weeks COMPARISON: None. TECHNIQUE: Axial images acquired through the brain without intravenous contrast. Images reviewed wi th bone, brain and subdural windows. Additional sagittal and coronal reconstructions were generated. Images stored on PACS. All CT scanners at this facility use dose modulation, iterative reconstruction, and/or weight based d osing when appropriate to reduce radiation dose to as low as reasonably achievable (ALARA). [facility]: Dose Right [facility]: CareDose [facility]: Dose Right [facility]: Teradose 4D [facility]: Smart [employer] RADIATION DOSE: CT Rad equipment meets quality standard of care and radiation dose reduction techniq ues were employed. CTDIvol: 48.7 mGy. DLP: 955 mGy-cm. mGy. LIMITATIONS: None. FINDINGS: VENTRICLES: Normal size and contour. CEREBRUM: No masses. No hemorrhage. No midline shift. No evidence for acute infarction. Normal gra y/white matter differentiation. No areas of low density in the white matter. CEREBELLUM: No masses. No hemorrhage. No alteration of density. No evidence for acute infarction. EXTRAAXIAL SPACES: No fluid collections. No masses. ORBITS AND GLOBE: No intra- or extraconal masses. Normal contour of globe without masses. CALVARIUM: No fracture. PARANASAL SINUSES: No fluid or mucosal thickening. SOFT TISSUES: No mass or hematoma. OTHER: No other significant finding. IMPRESSION: NORMAL BRAIN CT WITHOUT CONTRAST. EVIDENCE OF ACUTE STROKE: NO. COMMENT: Quality ID # [id number]: Final reports with documentation of one or more dose reduction techniques (e.g., Automated exposure control, adjustment of the mA and/or kV according to patient size, use of iterative reconstruction technique) TECHNICAL DOCUMENTATION: JOB ID: [id number] 2010 [employer]- All Rights Reserved Reading location - IP/workstation name: [email or web address]
== END 2019-12-27 08:41 | disposition home or self-care (01) ==
LOC: LC 20:34
PROVIDERS: ATTEND Obstetrics & Gynecology
DX: O26.892 Other specified pregnancy related conditions, second trimester (principal); E86.0 Dehydration; Z3A.26 26 weeks gestation of pregnancy
CPT/HCPCS: 81001; 80307; 80345; 59899; G0480 ×3; J2270; J2550; J2405; 36415; 70450; 80053; 80349; 83690; 84443; 85025; J1100

== ENCOUNTER 2020-01-29 18:07 | Outpatient (CLI) | payer MEDICAID ==
[2020-01-29 19:04] LABS: ABSOLUTE BASOPHILS # (AUTO) 0.1 10^3/uL (0.0-0.2); ABSOLUTE EOSINOPHILS # (AUTO) 0.1 10^3/uL (0.0-0.6); ABSOLUTE LYMPHOCYTES (AUTO) 1.8 10^3/uL (0.5-4.7); ABSOLUTE MONOCYTES (AUTO) 0.7 10^3/uL (0.1-1.4); ABSOLUTE NEUT (AUTO) 8.3 10^3/uL (1.7-8.2); BASOPHILS % (AUTO) 0.5 % (0-2); LYMPHOCYTES % (AUTO) 16.1 % (13-45); MEAN CORPUSCULAR HEMOGLOBIN 30.2 pg (27.0-33.4); MEAN CORPUSCULAR HGB CONC 34.2 g/dL (32.0-36.0); MEAN CORPUSCULAR VOLUME 88 fl (80-97); MONOCYTES % (AUTO) 6.4 % (3-13); PLATELET COUNT 169 10^3/uL (150-450); RED BLOOD COUNT 3.63 10^6/uL (3.72-5.28); RED CELL DISTRIBUTION WIDTH 14.8 % (11.5-14.0); TOTAL CELLS COUNTED % (AUTO) 100 %; WHITE BLOOD COUNT 10.9 10^3/uL (4.0-10.5)
[2020-01-29 19:13] LABS: ALBUMIN 3.5 g/dL (3.5-5.0); ALKALINE PHOSPHATASE 449 U/L (38-126); ASPARTATE AMINO TRANSFERASE 15 U/L (14-36); BILIRUBIN,TOTAL 0.4 mg/dL (0.2-1.3); BLOOD UREA NITROGEN 6 mg/dL (7-20); CALCIUM 8.8 mg/dL (8.4-10.2); GLUCOSE 92 mg/dL (75-110); TOTAL PROTEIN 6.2 g/dL (6.3-8.2); URIC ACID 2.8 mg/dL (2.5-6.2)
[2020-01-29 19:16] LABS: URINE AMPHETAMINES SCREEN NEGATIVE; URINE BENZODIAZEPINES SCREEN NEGATIVE; URINE COCAINE SCREEN NEGATIVE; URINE METHADONE SCREEN NEGATIVE; URINE PHENCYCLIDINE SCREEN NEGATIVE
[2020-01-29 19:20] LABS: APPEARANCE,URINE CLOUDY; BILIRUBIN,URINE NEGATIVE (NEGATIVE); COLOR,URINE YELLOW; GLUCOSE, URINE NEGATIVE (NEGATIVE); KETONES,URINE 20 mg/dL (NEGATIVE); LEUKOCYTE ESTERASE,URINE TRACE (NEGATIVE); NITRITE,URINE NEGATIVE (NEGATIVE); PROTEIN,URINE 30 mg/dL (NEGATIVE); URINE CREATININE 201.1 mg/dL (16-327); URINE PROTEIN 8.7 mg/dL (<12); URINE SPECIFIC GRAVITY 1.024
[2020-01-29 19:21] LABS: CARBON DIOXIDE 22 mmol/L (22-30); CHLORIDE 107 mmol/L (98-107); POTASSIUM 3.7 mmol/L (3.6-5.0)
[2020-01-29 19:23] LABS: URINE BARBITURATES SCREEN UNCONFIRMED POSITIVE; URINE MARIJUANA (THC) SCREEN UNCONFIRMED POSITIVE
[2020-01-29 19:24] LABS: ANION GAP 5 (5-19)
== END 2020-01-29 19:53 | disposition home or self-care (01) ==
LOC: LC 18:07
PROVIDERS: ATTEND Student in an Organized Health Care Education/Training Program
DX: O14.93 Unspecified pre-eclampsia, third trimester (principal); Z3A.30 30 weeks gestation of pregnancy
CPT/HCPCS: 36415; 80053; 80307; 81001; 82570; 83615; 84156; 84550; 85025

== ENCOUNTER 2020-02-23 19:16 | Outpatient (CLI) | payer MEDICAID ==
[2020-02-23 19:58] LABS: APPEARANCE,URINE SLIGHTLY-CLOUDY; BILIRUBIN,URINE NEGATIVE (NEGATIVE); CALCIUM OXALATE CRYSTALS,URINE FEW /HPF; COLOR,URINE YELLOW; GLUCOSE, URINE NEGATIVE (NEGATIVE); KETONES,URINE NEGATIVE (NEGATIVE); LEUKOCYTE ESTERASE,URINE NEGATIVE (NEGATIVE); NITRITE,URINE NEGATIVE (NEGATIVE); PROTEIN,URINE 30 mg/dL (NEGATIVE); URINE SPECIFIC GRAVITY 1.027; UROBILINOGEN,URINE NEGATIVE mg/dL (<2.0)
[2020-02-23 20:10] LABS: URINE AMPHETAMINES SCREEN NEGATIVE; URINE BARBITURATES SCREEN NEGATIVE; URINE BENZODIAZEPINES SCREEN NEGATIVE; URINE COCAINE SCREEN NEGATIVE; URINE METHADONE SCREEN NEGATIVE; URINE PHENCYCLIDINE SCREEN NEGATIVE
[2020-02-23 20:39] LABS: URINE MARIJUANA (THC) SCREEN UNCONFIRMED POSITIVE
--- NOTE | 2020-02-23 20:55 | Non Stress Test Report ---
Non Stress Test Datetime Report Generated by CPN: 02/23/2020 20:55 DEMOGRAPHIC EGA NST: 34.4 EGA NST: 31.0 INDICATION Indication for Study (NST) Other: >32 weeks VITAL SIGNS Temperature - NST: 98.4 Pulse - NST: 67 RESP - NST: 16 NBPSYS NST: 102 NBPDIA NST: 55 MONITORING Monitor Explained: Monitor Explained; Test Explained; Patient Verbalized Understanding Monitor Explained: Monitor Explained; Test Explained; Patient Verbalized Understanding Time on Monitor: 02/23/2020 20:00 Time on Monitor: 01/29/2020 18:34 Time off Monitor: 02/23/2020 20:36 NST Duration: 36 NST INTERVENTIONS NST Interventions: PO Hydration NST Interventions: PO Hydration; Reposition Patient Physician Notified NST: Dr. Fisher Physician Notified NST: Dr. Rome BABY A: [id number] BABY A Movement : Present Movement : Present Contraction Frequency : none FHR Baseline : 125 Accelerations : 15X15 Accelerations : 15X15 Decelerations : None Variability : Moderate 6-25bpm Variability : Moderate 6-25bpm NST Review: Meets Criteria for Reactive NST NST Review: Meets Criteria for Reactive NST NST Review and Verified By : Marina Gan RN NST Results: Reactive NST Results: Reactive NST REPORT Report Trigger: Send Report
== END 2020-02-23 20:45 | disposition home or self-care (01) ==
LOC: LC 19:16
PROVIDERS: ATTEND Obstetrics & Gynecology
DX: O26.893 Other specified pregnancy related conditions, third trimester (principal); Z3A.34 34 weeks gestation of pregnancy
CPT/HCPCS: 59025; 81001; 80307; 84112; G0480 ×2; 80349

== ENCOUNTER 2020-03-02 13:19 | Outpatient (CLI) | payer MEDICAID ==
[2020-03-02] MEDS ORDERED: BUTALB/ACETAMINOPHEN/CAFFEINE 1 TAB EACH PO ONE (14:01)
[2020-03-02] MEDS ORDERED: BUTALB/ACETAMINOPHEN/CAFFEINE 1 TAB EACH ONE (14:06)
[2020-03-02 14:11] LABS: APPEARANCE,URINE CLEAR; BILIRUBIN,URINE NEGATIVE (NEGATIVE); COLOR,URINE YELLOW; GLUCOSE, URINE NEGATIVE (NEGATIVE); KETONES,URINE TRACE mg/dL (NEGATIVE); LEUKOCYTE ESTERASE,URINE NEGATIVE (NEGATIVE); NITRITE,URINE NEGATIVE (NEGATIVE); PROTEIN,URINE NEGATIVE (NEGATIVE); URINE SPECIFIC GRAVITY 1.017; UROBILINOGEN,URINE NEGATIVE mg/dL (<2.0)
[2020-03-02 14:46] LABS: URINE AMPHETAMINES SCREEN NEGATIVE; URINE BARBITURATES SCREEN NEGATIVE; URINE BENZODIAZEPINES SCREEN NEGATIVE; URINE COCAINE SCREEN NEGATIVE; URINE METHADONE SCREEN NEGATIVE; URINE PHENCYCLIDINE SCREEN NEGATIVE
[2020-03-02 14:49] LABS: URINE MARIJUANA (THC) SCREEN UNCONFIRMED POSITIVE
[2020-03-02 15:53] LABS: HEMATOCRIT 32.9 % (36.0-47.0); HEMOGLOBIN 11.3 g/dL (12.0-15.5); MEAN CORPUSCULAR VOLUME 87 fl (80-97); WHITE BLOOD COUNT 11.9 10^3/uL (4.0-10.5)
[2020-03-02 15:54] LABS: MEAN CORPUSCULAR HEMOGLOBIN 29.8 pg (27.0-33.4); MEAN CORPUSCULAR HGB CONC 34.5 g/dL (32.0-36.0); PLATELET COUNT 152 10^3/uL (150-450)
[2020-03-02 16:06] LABS: ALBUMIN 3.4 g/dL (3.5-5.0); ALKALINE PHOSPHATASE 778 U/L (38-126); ANION GAP 9 (5-19); ASPARTATE AMINO TRANSFERASE 15 U/L (14-36); BILIRUBIN,DIRECT 0.2 mg/dL (0.0-0.4); BILIRUBIN,TOTAL 0.4 mg/dL (0.2-1.3); BLOOD UREA NITROGEN 6 mg/dL (7-20); CALCIUM 8.9 mg/dL (8.4-10.2); CARBON DIOXIDE 20 mmol/L (22-30); CHLORIDE 106 mmol/L (98-107); GLUCOSE 73 mg/dL (75-110); POTASSIUM 3.9 mmol/L (3.6-5.0); TOTAL PROTEIN 5.6 g/dL (6.3-8.2); URIC ACID 3.5 mg/dL (2.5-6.2)
[2020-03-02 17:05] LABS: UR PRO/CREAT RATIO RESULT 0.1 mg/mg (0.0-0.2); URINE CREATININE 96.8 mg/dL (16-327); URINE PROTEIN 9.6 mg/dL (<12)
--- NOTE | 2020-03-02 19:21 | Non Stress Test Report ---
Non Stress Test Datetime Report Generated by CPN: 03/02/2020 19:21 DEMOGRAPHIC Test Number: 3 EGA NST: 35.5 INDICATION Indication for Study (NST) Other: LC VITAL SIGNS Temperature - NST: 97.6 Pulse - NST: 82 RESP - NST: 20 NBPSYS NST: 134 NBPDIA NST: 77 MONITORING Monitor Explained: Monitor Explained; Test Explained; Patient Verbalized Understanding Time on Monitor: 03/02/2020 13:33 Time off Monitor: 03/02/2020 16:52 NST Duration: 199 NST INTERVENTIONS NST Interventions: IV Fluids; Reposition Patient Physician Notified NST: Watts CNM BABY A: [id number] BABY A Movement : Present Contraction Frequency : Irritability FHR Baseline : 125 Accelerations : 15X15 Decelerations : None Variability : Moderate 6-25bpm NST Review: Meets Criteria for Reactive NST NST Review and Verified By : SAutry NST Results: Reactive NST REPORT Report Trigger: Send Report
== END 2020-03-02 17:37 | disposition home or self-care (01) ==
LOC: LC 13:19
PROVIDERS: ATTEND Obstetrics & Gynecology
DX: O16.3 Unspecified maternal hypertension, third trimester (principal); O99.283 Endocrine, nutritional and metabolic diseases complicating pregnancy, third trimester; E86.0 Dehydration; Z3A.35 35 weeks gestation of pregnancy
CPT/HCPCS: 59025; 36415; 84156; 84550; 82570; 85027; 80053; 81001; 80307; G0480 ×2; J3490; 80349

== ENCOUNTER 2020-03-15 11:10 | Outpatient (CLI) | payer MEDICAID ==
[2020-03-15 11:44] LABS: APPEARANCE,URINE CLEAR; BILIRUBIN,URINE NEGATIVE (NEGATIVE); COLOR,URINE YELLOW; GLUCOSE, URINE NEGATIVE (NEGATIVE); KETONES,URINE 80 mg/dL (NEGATIVE); LEUKOCYTE ESTERASE,URINE NEGATIVE (NEGATIVE); NITRITE,URINE NEGATIVE (NEGATIVE); PROTEIN,URINE 30 mg/dL (NEGATIVE); URINE SPECIFIC GRAVITY 1.024; UROBILINOGEN,URINE NEGATIVE mg/dL (<2.0)
[2020-03-15 12:01] LABS: URINE AMPHETAMINES SCREEN NEGATIVE; URINE BENZODIAZEPINES SCREEN NEGATIVE; URINE COCAINE SCREEN NEGATIVE; URINE METHADONE SCREEN NEGATIVE; URINE PHENCYCLIDINE SCREEN NEGATIVE
[2020-03-15 12:06] LABS: URINE BARBITURATES SCREEN UNCONFIRMED POSITIVE; URINE MARIJUANA (THC) SCREEN UNCONFIRMED POSITIVE
--- NOTE | 2020-03-15 12:35 | Non Stress Test Report ---
Non Stress Test Datetime Report Generated by CPN: 03/15/2020 12:35 DEMOGRAPHIC Test Number: 4 EGA NST: 37.4 INDICATION Indication for Study (NST) Other: Post fall MONITORING Monitor Explained: Monitor Explained; Test Explained; Patient Verbalized Understanding Time on Monitor: 03/15/2020 11:29 Time off Monitor: 03/15/2020 12:05 NST Duration: 36 NST INTERVENTIONS NST Interventions: PO Hydration; Reposition Patient Physician Notified NST: Dr. Moon BABY A: [id number] BABY A Movement : Present Contraction Frequency : none FHR Baseline : 140 Accelerations : 15X15 Decelerations : None Variability : Moderate 6-25bpm NST Review: Meets Criteria for Reactive NST NST Review and Verified By : TMartin,RN NST Results: Reactive NST REPORT Report Trigger: Send Report
--- NOTE | 2020-03-15 13:25 | RADIOLOGY REPORT (SQ) ---
EXAM DESCRIPTION: U/S OB LIMITED IMAGES COMPLETED DATE/TIME: 03/15/2020 12:55 pm REASON FOR STUDY: post fall, wellbeing, placenta COMPARISON: 11/28/2019 TECHNIQUE: Limited transabdominal grayscale ultrasound for evaluation of specific requested obstetri priti parameters. LIMITATIONS: None. FINDINGS: CERVICAL LENGTH: 3.9 cm Closed. ALEJANDRA: 10.8 cm. FHR: 127 beats per minute. PRESENTATION: Cephalic. PLACENTA: Anterior. No evidence of abruption. ANATOMY: Normal as visualized OTHER: No other significant findings. IMPRESSION: LIMITED OBSTETRICAL ULTRASOUND WITH MEASURED PARAMETERS DELINEATED ABOVE. Trimester of : Third trimester - 28 weeks to delivery. TECHNICAL DOCUMENTATION: JOB ID: [id number] 2010 [employer]- All Rights Reserved Reading location - IP/workstation name: [email or web address]
== END 2020-03-15 13:57 | disposition home or self-care (01) ==
LOC: LC 11:10
PROVIDERS: ATTEND Obstetrics & Gynecology
DX: O9A.213 Injury, poisoning and certain other consequences of external causes complicating pregnancy, third trimester (principal); O26.893 Other specified pregnancy related conditions, third trimester; M54.9 Dorsalgia, unspecified; Z3A.37 37 weeks gestation of pregnancy; T14.90XA Injury, unspecified, initial encounter; W19.XXXA Unspecified fall, initial encounter; Y93.9 Activity, unspecified; Y92.9 Unspecified place or not applicable
CPT/HCPCS: 59025; 81005; 80307; 76815; G0480 ×2; 80349

== ENCOUNTER 2020-03-25 20:57 | Inpatient (IN) | payer MEDICAID ==
[2020-03-25] MEDS ORDERED: RINGERS SOLUTION,LACTATED 1,000 ML IV PRN (21:11)
[2020-03-25] MEDS ORDERED: DINOPROSTONE 10 MG VAGINAL INSERT.SR PV PRN (21:11)
[2020-03-25] MEDS ORDERED: RINGERS SOLUTION,LACTATED 1,000 ML IV ONE (21:11)
[2020-03-25] MEDS ORDERED: OXYTOCIN/0.9 % SODIUM CHLORIDE 30 UNIT/500 ML RTUINJ IV PRN (21:11)
[2020-03-25 21:51] LABS: APPEARANCE,URINE SLIGHTLY-CLOUDY; BILIRUBIN,URINE NEGATIVE (NEGATIVE); COLOR,URINE YELLOW; GLUCOSE, URINE NEGATIVE (NEGATIVE); KETONES,URINE NEGATIVE (NEGATIVE); LEUKOCYTE ESTERASE,URINE NEGATIVE (NEGATIVE); NITRITE,URINE NEGATIVE (NEGATIVE); PROTEIN,URINE 30 mg/dL (NEGATIVE); URINE SPECIFIC GRAVITY 1.023
[2020-03-25 21:54] LABS: ABSOLUTE EOSINOPHILS # (AUTO) 0.1 10^3/uL (0.0-0.6); ABSOLUTE LYMPHOCYTES (AUTO) 1.7 10^3/uL (0.5-4.7); ABSOLUTE MONOCYTES (AUTO) 0.9 10^3/uL (0.1-1.4); ABSOLUTE NEUT (AUTO) 7.5 10^3/uL (1.7-8.2); BASOPHILS % (AUTO) 0.3 % (0-2); EOSINOPHILS % (AUTO) 0.8 % (0-6); HEMATOCRIT 32.8 % (36.0-47.0); HEMOGLOBIN 11.5 g/dL (12.0-15.5); LYMPHOCYTES % (AUTO) 16.4 % (13-45); MEAN CORPUSCULAR HEMOGLOBIN 30.6 pg (27.0-33.4); MEAN CORPUSCULAR HGB CONC 35.1 g/dL (32.0-36.0); MEAN CORPUSCULAR VOLUME 87 fl (80-97); MONOCYTES % (AUTO) 8.4 % (3-13); PLATELET COUNT 153 10^3/uL (150-450); RED BLOOD COUNT 3.76 10^6/uL (3.72-5.28); RED CELL DISTRIBUTION WIDTH 14.5 % (11.5-14.0); SEGMENTED NEUTROPHILS % (AUTO) 74.1 % (42-78); TOTAL CELLS COUNTED % (AUTO) 100 %; WHITE BLOOD COUNT 10.2 10^3/uL (4.0-10.5)
--- NOTE | 2020-03-25 21:57 | Admission Physical ---
Datetime Report Generated by CPN: 03/25/2020 21:57 CURRENT ADMISSION Chief Complaint: Scheduled Induction of Labor Indication for Induction: Maternal Diabetes Admit Impression : Term, Intrauterine ; Induction of Labor Admit Plan: Admit to Unit; Initiate Labor Induction Protocol ALLERGIES Medication Allergies: No Medication Allergies: No Known Allergies (03/25/2020) Latex: No Latex Allergies OBSTETRICAL HISTORY EDC: 04/01/2020 00:00 : 4 Para: 1 Term: 1 : 0 SAB: 1 IAB: 0 Ectopic: 1 Livin Cesareans: 0 VBACs: 0 Multiple Births: 0 SEE RECORDS Alcohol: No Marijuana : Yes Cocaine: No Other Illicit Drugs: No Cigarettes: Never Smoker. [id number] Cigarette Comments: Edibles over the last month for migraines. PHYSICAL EXAM General: Normal HEENT: Normal Neurologic: Normal Thyroid: Normal Heart: Normal Lungs: Normal Breast: Deferred Back: Normal Abdomen: Normal Genitourinary Exam: Normal Extremities: Normal DTRs: Normal Pelvic Type: Adequate Vital Signs: Reviewed VAGINAL EXAM Dilatation: 2 Effacement: 50 MEMBRANES Pooling: Negative Membranes: Intact FETUS A EGA: 39.0 Monitoring: External US FHR- Baseline: 140 Variability: Moderate 6-25bpm Estimated Weight (gm): 3600 Presentation: Vertex PLANS FOR LABOR AND DELIVERY Labor and Delivery: None Pain Management: Epidural Feeding Preference: Breast Circumcision: Yes INFORMED CONSENT Signature: with User ID: [email or web address]
[2020-03-25 22:13] LABS: URINE AMPHETAMINES SCREEN NEGATIVE; URINE BENZODIAZEPINES SCREEN NEGATIVE; URINE COCAINE SCREEN NEGATIVE; URINE METHADONE SCREEN NEGATIVE; URINE PHENCYCLIDINE SCREEN NEGATIVE
[2020-03-25 22:15] LABS: URINE BARBITURATES SCREEN UNCONFIRMED POSITIVE; URINE MARIJUANA (THC) SCREEN UNCONFIRMED POSITIVE
[2020-03-25] MEDS ORDERED: DINOPROSTONE 10 MG VAGINAL INSERT.SR ONE (22:26)
[2020-03-26] MEDS ORDERED: ZOLPIDEM TARTRATE 5 MG TABLET ONE (01:33)
[2020-03-26] MEDS ORDERED: MAG HYDROX/AL HYDROX/SIMETH SUSP 30 ML UDCUP ONE (01:34)
[2020-03-26] MEDS ORDERED: MAG HYDROX/AL HYDROX/SIMETH SUSP 30 ML UDCUP PO ONE (02:00)
--- NOTE | 2020-03-26 05:34 | L&D Progress Notes ---
PROGRESS NOTES Datetime Report Generated by CPN: 03/26/2020 05:34 PROGRESS NOTE Comment: The baby has flipped footling breech. We will proceed with a c section. VAGINAL EXAM Dilatation: 2 Effacement: 50 LAST VAGINAL EXAM-NURSING Nursing Exam Dilitation: 2.0 Nursing Exam Effacement: 25 Nursing Exam Station: -3 Nursing Exam Contractions: irregular MEMBRANES Pooling: Negative Membranes: Intact FETUS A : 39.0 Estimated Weight (gm): 3600 Presentation: Vertex SIGNATURE SIGNATURE: [id number];[id number];[id number] Signature: with User ID: [email or web address]
[2020-03-26] MEDS ORDERED: CITRIC ACID/SODIUM CITRATE ORAL SOLN 15 ML UDCUP ONE (05:36)
[2020-03-26] MEDS ORDERED: CEFAZOLIN 2 GM/D5W RTU 2 GM/50 ML RTUPB IV ONE (05:36)
[2020-03-26] MEDS ORDERED: MEASLES,MUMPS&RUBELLA VACC/PF 0.5 ML VIAL SUBCUT PRN (05:37)
[2020-03-26] MEDS ORDERED: OXYTOCIN/0.9 % SODIUM CHLORIDE 30 UNIT/500 ML RTUINJ IV PRN (05:37)
[2020-03-26] MEDS ORDERED: OXYCODONE-ACETAMINOPHEN 5-325 MG TABLET PO PRN ×3 (05:37→06:49)
[2020-03-26] MEDS ORDERED: RINGERS SOLUTION,LACTATED 1,000 ML IV PRN (05:37)
[2020-03-26] MEDS ORDERED: DIPH/PERTUSS(ACELL)/TETANUS VAC/PF 0.5 ML SYR (>=10YO) IM PRN (05:37)
[2020-03-26] MEDS ORDERED: SIMETHICONE 80 MG TAB.CHEW PO PRN (05:37)
[2020-03-26] MEDS ORDERED: ACETAMINOPHEN 1 GM/100 ML RTUPB IV PRN (05:37)
[2020-03-26] MEDS ORDERED: PROMETHAZINE HCL INJ 25 MG/1 ML VIAL IV PRN ×3 (05:37→06:49)
[2020-03-26] MEDS ORDERED: HYDROMORPHONE HCL INJ/PF 2 MG/ML AMPULE IV PRN (05:37)
[2020-03-26] MEDS ORDERED: ACETAMINOPHEN 325 MG TABLET PO PRN (05:37)
[2020-03-26] MEDS ORDERED: CEFAZOLIN SODIUM 2 GM in DEXTROSE 5%-WATER 50 ML IV PRN (05:40)
[2020-03-26] MEDS ORDERED: OXYTOCIN 10 UNIT/ML VIAL ONE (05:54)
[2020-03-26] MEDS ORDERED: ACETAMINOPHEN 1,000 MG/100 ML RTUPB IV ONE (05:55)
[2020-03-26] MEDS ORDERED: FENTANYL CITRATE INJ/PF 100 MCG/2 ML AMPUL ONE ×3 (05:55→07:38)
[2020-03-26] MEDS ORDERED: EPHEDRINE SULFATE INJ 50 MG/1 ML AMPULE ONE (05:55)
[2020-03-26] MEDS ORDERED: MIDAZOLAM 2 MG/2 ML INJ ONE (05:55)
[2020-03-26] MEDS ORDERED: KETOROLAC TROMETHAMINE INJ/PF 30 MG/1 ML SDV ONE (05:55)
[2020-03-26] MEDS ORDERED: ONDANSETRON HCL INJ/PF 4 MG/2 ML SDV ONE (05:55)
[2020-03-26] MEDS ORDERED: MORPHINE SULFATE 10 MG/ML INJ ONE ×2 (06:40→08:10)
[2020-03-26] MEDS ORDERED: FENTANYL CITRATE INJ/PF 100 MCG/2 ML AMPUL IV PRN ×3 (06:49)
[2020-03-26] MEDS ORDERED: ONDANSETRON HCL INJ/PF 4 MG/2 ML SDV IV PRN (06:49)
[2020-03-26] MEDS ORDERED: MEPERIDINE HCL/PF INJ 25 MG/1 ML DISP.SYRIN IV PRN (06:49)
[2020-03-26] MEDS ORDERED: DIPHENHYDRAMINE HCL 50 MG/ML VIAL IV PRN (06:49)
--- NOTE | 2020-03-26 07:06 | Operative Report ---
Operative Report DATE OF SURGERY: 03/26/20 PREOPERATIVE DIAGNOSIS: Footling breech in labor 5 cm dilated POSTOPERATIVE DIAGNOSIS: Same OPERATION: Primary via low transverse uterine incision SURGEON: DANIEL JUDGE ANESTHESIA: GA TISSUE REMOVED OR ALTERED: Placenta COMPLICATIONS: None ESTIMATED BLOOD LOSS: 400 cc INTRAOPERATIVE FINDINGS: Viable male crying at delivery. Normal uterus tubes and ovaries PROCEDURE: Patient was scheduled to be induced and was vertex previously. After her Cervidil her water broke and the baby was noted to be footling breech. Patient was taken to the OR and placed in supine position after her spinal anesthesia. She is prepared and draped in sterile fashion. Pa was placed for drainage of the bladder. Low transverse incision was made and carried down the level of the fascia. The fascial incision was made with knife and extended bilaterally with curved [place]osta scissors. The fascia was off the rectus muscles using sharp and blunt dissection. The rectus muscles are in the midline. The peritoneum was entered without incident. Bladder blade was placed in uterine segment was identified. A low transverse incision was made creating a bladder flap. Bladder blade was placed low transverse uterine incision was made with the knife and extended with fingertips. The baby was delivered with some fundal pressure in breech fashion. Mouth and nose were suctioned free. The cord is doubly clamped and cut. Baby is passed off to the flare stitcher in attendance. The placenta was manually extracted with trailing membranes. The uterus was externalized wrapped in a moist lap sponge. Uterine contents wiped free. Uterus was closed with a running locking layer of 0 chromic suture using the second layer to imbricate the first completing a double layer closure of the uterus. The serosa was closed with a running 2-0 chromic stitch. The pelvis was irrigated and suctioned free of fluid the uterus was replaced in the abdomen. The abdominal wall peritoneum was closed with running 2-0 chromic stitch. Fascia was closed with a running 0 Vicryl in 2 segments. Miguelangel's layer was brought together with 0 plain gut stitch and the skin was closed with running subcuticular 4-0 undyed Vicryl stitch. The wound was dressed mother and baby did well.
--- NOTE | 2020-03-26 08:12 | Birth Certificate Data ---
Cert Data Datetime Report Generated by SURESH: 03/26/2020 08:11 CERTIFICATE DATA 47a. Care: Yes (11/28/2019 08:29:Omayra Agee RN) 47b. Date of First Visit: 10/09/2019 00:00 (11/28/2019 08:29:Omayra Agee RN) 47c. Date of Last Visit: 03/20/2020 00:00 (11/28/2019 08:29:Omayra Agee RN) 47d. Number of Visits: 16 (11/28/2019 08:29:Omayra Agee RN) 48a. Number of Prev Live Births: 1 (11/28/2019 08:29:Omayra Agee RN) 48b. Now Livin (11/28/2019 08:29:Omayra Agee RN) 48c. Live Births Now : 0 (11/28/2019 08:29:QS system process) 48d. Date of Last Live : 09/30/2010 00:00 (11/28/2019 08:29:Omayra Agee RN) 48e. Losses: 2 (11/28/2019 08:29:Omayra Agee RN) 48f. Date of Last Preg Loss: 01/31/2018 00:00 (11/28/2019 08:29:Omayra Agee RN) RISK FACTORS IN THIS 49a. Diabetes: Yes (11/28/2019 08:29:Alyssia Vega RN) Type of Diabetes: Gestational Diabetes (11/28/2019 08:29:Alyssia Vega RN) 49b. Hypertension: No (11/28/2019 08:29:Alyssia Vega RN) 49c. Previous Births: 0 (11/28/2019 08:29:Omayra Agee RN) 49d. Stillborns: No (11/28/2019 08:29:Alyssia Vega RN) 49d. IUGR: No (11/28/2019 08:29:Alyssia Vega RN) 49e. Infertility Treatment: No (11/28/2019 08:29:Alyssia Vega RN) 49f. Previous Cesareans: 0 (11/28/2019 08:29:Omayra Agee RN) Mother's Height 50b. Height Inches: 65 (11/28/2019 08:38:QS system process) Mother's Weight 51a. Pre- Weight (lbs): 249 (11/28/2019 08:29:Omayra Agee RN) 51b. Weight at Delivery (lbs): 275 (03/25/2020 21:15:QS system process) 52. Dt Last Normal Menses Began: 06/14/2019 00:00 (11/28/2019 08:29:Omayra Agee RN) Infections Present/Treated 53a. Gonorrhea: No (11/28/2019 08:29:Alyssia Vega RN) Results this Hospital Visit : Negative (11/28/2019 08:29:Omayra Agee RN) 53b. Syphilis: No (11/28/2019 08:29:Alyssia Vega RN) 53c. Chlamydia: No (11/28/2019 08:29:Alyssia Vega RN) Results this Hospital Visit: Negative (11/28/2019 08:29:Omayra Agee RN) 53d. Hepatitis B: No (11/28/2019 08:29:Alyssia Vega RN) Results this Hospital Visit: Negative (11/28/2019 08:29:Omayra Agee RN) 53e. Hepatitis C: Negative (11/28/2019 08:29:Omayra Agee RN) 53h. Mother Tested for HBsAG: Yes (11/28/2019 08:29:Omayra Agee RN) 53i. Date Tested: 09/17/2019 00:00 (11/28/2019 08:29:Omayra Agee RN) 53j. Test Result: Negative (11/28/2019 08:29:Omayra Agee RN) Obstetric Procedures 54a, b, c. Obstetric Procedures: Ultrasound; NST (11/28/2019 08:29:Alyssia Vega RN) Cigarette Smoking Cigarette Smoking: Never Smoker. [id number] (11/28/2019 08:29:Alyssia Vega RN) Onset of Labor 56a. PROM >12 Hrs: 2.30 (11/28/2019 08:29:QS system process) 56b. Precipitous Labor <3 Hrs: 2 (11/28/2019 08:29:QS system process) 56c. Prolonged Labor > 20 Hrs: 2 (11/28/2019 08:29:QS system process) 57a. Induction of Labor: N/A (11/28/2019 08:29:Felecia Gay RN) 57a. Induction of Labor: Cervidil (03/25/2020 22:40:Alyssia Vega RN) 57d. Steroids - Lung Mat: None (11/28/2019 08:29:Omayra Agee RN) 57d. Steroids - Lung Mat: Not Applicable (11/28/2019 08:29:Omayra Agee RN) 57g. Moderate/Heavy Meconium: Clear (03/26/2020 04:16:Omayra Agee RN) 57h. Intolerance of Labor: Breech Presentation (11/28/2019 08:29:Felecia Gay RN) 57i. Epidural/Spinal Anesthesia: None (11/28/2019 08:29:Felecia Gay RN) Method of Delivery 58a. Forceps - Unsuccessful A: N/A (11/28/2019 08:29:Felecia Gay RN) 58b. Vacuum - Unsuccessful A: N/A (11/28/2019 08:29:Felecia Gay RN) 58c. Presentation at 58c. Presentation at - A : Breech (03/26/2020 05:20:Omayra Agee RN) Final Route and Method of Del 58d. Baby A Route/Delivery: (11/28/2019 08:29:MADELINE Voss) 58e. Trial of Labor Attempted: No (11/28/2019 08:29:Felecia Gay RN) 58e. Trial of Labor Attempted A: N/A (11/28/2019 08:29:Felecia Gay RN) 58e. Trial of Labor Attempted B: N/A (11/28/2019 08:29:Felecia Gay RN) Maternal Morbidity 59b. 3rd or 4th Degree Lacs: None (11/28/2019 08:29:Felecia Gay RN) Birthweight Baby A: 2690 (11/28/2019 08:29:MADELINE Voss) 60a. Pounds : 5 (11/28/2019 08:29:QS system process) 60b. Ounces: 15 (11/28/2019 08:29:QS system process) 61. GA at Delivery Baby A: 39.1 (11/28/2019 08:29:Felecia Gay RN) : Full Term- 39- 40.6 Weeks (11/28/2019 08:29:QS system process) 62a. 5 Minute Baby A: 8 (11/28/2019 08:29:QS system process)
--- NOTE | 2020-03-26 08:12 | Delivery Summary ---
Del Sum A-C Datetime Report Generated by CPN: 03/26/2020 08:11 DELIVERY PERSONNEL DELIVERY PERSONNEL: [id number] Delivery Doctor:: Stephanie Moon MD HEAVY TRUCK MECHANIC:: Sophia Harvey HEAVY TRUCK MECHANIC Rehabilitation Therapy Aide:: Felecia Gay RN Neonatal Nurse Practitioner:: MADELINE Lopez Nursery Nurse:: Jael Field RN Scale Installer/TITLE SPECIALIST: Misael Hale CST Scale Installer/TITLE SPECIALIST: Felicia Ashley, ST MATERNAL INFORMATION Delivery Anesthesia: General Medications After Delivery: Pitocin 30 Units in 500ml NS/D5W Delivery QBL: 560 Maternal Complications: None LABOR SUMMARY EDC: 04/01/2020 00:00 No. Babies in Womb: 1 Attempted: No Labor Anesthesia: None LABOR INFORMATION Reason for Induction: Maternal Diabetes Onset of Labor: 03/26/2020 04:16 Cervical Ripening Agents: Cervidil Oxytocin: N/A Group B Beta Strep: negative Antibiotics # of Doses: N/A Name of Antibiotic Given: n/a Steroids Given: None Reason Steroids Not Administered: Not Applicable MEMBRANES Membranes Rupture Method: Spontaneous Rupture of Membranes: 03/26/2020 04:16 Length of Rupture (hr): 2.30 Amniotic Fluid Color: Clear Amniotic Fluid Amount: Large Amniotic Fluid Odor: Normal STAGES OF LABOR Stage 3 hr: 0 Stage 3 min: 1 Total Time in Labor hr: 2 Total Time in Labor min: 19 VAGINAL DELIVERY Episiotomy: None Laceration #1: None Laceration Extension #1: N/A Sponge Count Correct: N/A Sharps Count Correct: N/A CSECTION DELIVERY Primary Indication: Breech Presentation CSection Urgency: Non-Scheduled CSection Incidence: Primary Labor: Labor Elective: Nonelective CSection Incision: Lower Uterine Transverse BABY A INFORMATION Delivery Date/Time: 03/26/2020 06:34 Method of Delivery: Nurse Controlled Delivery: No Born in Route : No : N/A Forceps: N/A Vacuum Extraction: N/A Shoulder Dystocia : No PRESENTATION/POSITION BABY A Presentation: Breech PLACENTA INFORMATION BABY A Placenta Delivery Time : 03/26/2020 06:35 Placenta Method of Delivery: Manual Removal Placenta Status: Delivered SCORES BABY A Heart Rate 1 min: >100 bpm Resp Effort 1 min: Good Cry Reflex Irritability 1 min: Cough or Sneeze or Pulls Away Muscle Tone 1 min: Active Motion Color 1 min: Blue/Pale Resuscitation Effort 1 min: Tactile Stimulation SCORE 1 MIN: 8 Heart Rate 5 min: >100 bpm Resp Effort 5 min: Good Cry Reflex Irritability 5 min: Cough or Sneeze or Pulls Away Muscle Tone 5 min: Some Flexion of Extremities Color 5 min: Body [place], Extremities Blue Resuscitation Effort 5 min: Tactile Stimulation SCORE 5 MIN: 8 INFANT INFORMATION BABY A Gestational Age at Delivery: 39.1 Gestational Status: Full Term- 39- 40.6 Weeks Infant Outcome : Liveborn Condition : Stable Infant Sex: Male WEIGHT/LENGTH BABY A Birthweight (gm): 2690 Weight (lb): 5 Weight (oz): 15 Length (in): 19.00 Length (cm): 48.26 CORD INFORMATION BABY A No. Cord Vessels: 3 Nuchal Cord : N/A Cord Blood Taken: Yes-For Eval (Mom's Blood Type - or O+) ASSESSMENT BABY A Skin to Skin: No Transferred To: [facility] BABY B INFORMATION : N/A
[2020-03-26] MEDS: MORPHINE SULFATE 10 MG/ML INJ IV PRN ×2 (08:17→08:46)
[2020-03-26] MEDS ORDERED: OXYTOCIN/0.9 % SODIUM CHLORIDE 30 UNIT/500 ML RTUINJ ONE (08:23)
[2020-03-26] MEDS ORDERED: PROPOFOL INJ 200 MG/20 ML VIAL IV ONE (09:17)
[2020-03-26] MEDS: KETOROLAC TROMETHAMINE INJ/PF 30 MG/1 ML SDV IV SCH ×3 (09:48→22:00)
[2020-03-26] MEDS: OXYCODONE-ACETAMINOPHEN 5-325 MG TABLET PO PRN ×2 (11:04→18:32)
[2020-03-26] MEDS: DOCUSATE SODIUM 100 MG CAPSULE PO SCH ×2 (11:06→18:31)
[2020-03-26] MEDS: PRENATAL VITAMIN W DHA CAPSULE PO SCH (11:06)
[2020-03-27] MEDS: IBUPROFEN 800 MG TABLET PO SCH ×5 (01:47→23:43)
[2020-03-27] MEDS: OXYCODONE-ACETAMINOPHEN 5-325 MG TABLET PO PRN ×4 (03:32→20:14)
[2020-03-27] MEDS: PRENATAL VITAMIN W DHA CAPSULE PO SCH (09:08)
[2020-03-27] MEDS: DOCUSATE SODIUM 100 MG CAPSULE PO SCH ×2 (09:08→17:22)
[2020-03-27 10:29] LABS: HEMATOCRIT 23.5 % (36.0-47.0); MEAN CORPUSCULAR HEMOGLOBIN 30.5 pg (27.0-33.4); MEAN CORPUSCULAR HGB CONC 34.7 g/dL (32.0-36.0); MEAN CORPUSCULAR VOLUME 88 fl (80-97); PLATELET COUNT 135 10^3/uL (150-450); RED BLOOD COUNT 2.68 10^6/uL (3.72-5.28); RED CELL DISTRIBUTION WIDTH 14.8 % (11.5-14.0); WHITE BLOOD COUNT 12.3 10^3/uL (4.0-10.5)
[2020-03-27 10:39] LABS: HEMOGLOBIN 8.2 g/dL (12.0-15.5)
--- NOTE | 2020-03-27 13:37 | PDOC PROGRESS REPORT ---
Subjective-OB Progress Note for:: 03/27/20 Subjective: reports bleeding slowing, pain controlled with current meds. denies needs. Physical Exam (OB) Vital Signs: Temp Pulse Resp BP Pulse Ox 97.8 F 80 18 118/59 L 100 03/27/20 11:17 03/27/20 11:17 03/27/20 11:17 03/27/20 11:17 03/27/20 11:17 Intake & Output 03/26/20 03/27/20 03/28/20 06:59 06:59 06:59 Intake Total 1600 300 Output Total 1600 600 Balance 0 -300 Weight 124.6 kg - Dressing Removed: No Incision: Dressing Closure Type: opsite - Maternal Morbidity 59. Maternal Morbidity (serious complications experinced by the mother associated with labor and delivery: None of the above - Abdomen Description: Tender, Soft Hernia Present: No Fundal Description: Firm, Midline Fundal Height: u/u - u/2 - Abdominal Distension: No distension - Extremities Lower extremities: Galileo's sign - neg Calf: Normal, Nontender Objective-Diagnostic Laboratory: 03/27/20 10:11 03/27/20 03/27/20 03/27/20 07:28 07:28 10:11 WBC Cancelled 12.3 H RBC Cancelled 2.68 L Hgb Cancelled 8.2 L D Hct Cancelled 23.5 L MCV Cancelled 88 MCH Cancelled 30.5 MCHC Cancelled 34.7 RDW Cancelled 14.8 H Plt Count Cancelled 135 L Blood Type O NEGATIVE Assessment and Plan(PN) - Assessment and Plan (1) Footling breech presentation Qualifiers: Fetus number: single or unspecified fetus Qualified Code(s): O32.8XX0 - Maternal care for other malpresentation of fetus, not applicable or unspecified Is this a current diagnosis for this admission?: Yes (2) Delivery by section for footling breech presentation Is this a current diagnosis for this admission?: Yes (3) S/P primary low transverse Is this a current diagnosis for this admission?: Yes - Time Spent with Patient Time with patient: Less than 15 minutes - Disposition Anticipated Discharge Disposition: Home, Self Care Anticipated Discharge Timeframe: within 48 hours
[2020-03-28] MEDS: OXYCODONE-ACETAMINOPHEN 5-325 MG TABLET PO PRN ×2 (02:09→07:43)
[2020-03-28] MEDS: IBUPROFEN 800 MG TABLET PO SCH ×2 (05:12→12:06)
[2020-03-28] MEDS: PRENATAL VITAMIN W DHA CAPSULE PO SCH (09:46)
[2020-03-28] MEDS: DOCUSATE SODIUM 100 MG CAPSULE PO SCH (09:46)
--- NOTE | 2020-03-28 10:41 | PDOC DISCHARGE SUMMARY ---
Impression - Admit/DC Date/PCP Admission Date/Primary Care Provider: 03/25/20 20:57 DANIEL JUDGE MD Discharge Date: 03/28/20 - Discharge Diagnosis (1) Footling breech presentation Is this a current diagnosis for this admission?: Yes (2) Delivery by section for footling breech presentation Is this a current diagnosis for this admission?: Yes (3) S/P primary low transverse Is this a current diagnosis for this admission?: Yes - Additional Information Discharge Diet: Regular Discharge Activity: Balance Activity w/Rest, No Lifting Over 10 Pounds, No Lifting/Push/Pulling, Pelvic Rest, No tub bath Referrals: DANIEL JUDGE MD [Primary Care Provider] - Prescriptions: Ibuprofen [Motrin 800 mg Tablet] 800 mg PO Q8HP PRN #90 tablet PRN Reason: Oxycodone HCl/Acetaminophen [Percocet 5-325 mg Tablet] 1 tab PO Q4HP PRN #30 tablet PRN Reason: Home Medications: Vits96/Iron Fum/Folic [ Tablet] 1 each PO DAILY #30 tablet 07/25/19 Iron,Carb/Vit C/Vit B12/Folic [Iron 100 Plus Tablet] 1 each PO DAILY 12/27/19 Butalb/Acetaminophen/Caffeine [Fioricet 50-300-40 mg Capsule] 1 cap PO Q4 PRN #30 cap 03/02/20 Ibuprofen [Motrin 800 mg Tablet] 800 mg PO Q8HP PRN #90 tablet 03/28/20 Oxycodone HCl/Acetaminophen [Percocet 5-325 mg Tablet] 1 tab PO Q4HP PRN #30 tablet 03/28/20 Hospital Course 59. Maternal Morbidity (serious complications experinced by the mother associated with labor and delivery: None of the above Results Laboratory Results: WBC 12.3 10^3/uL (4.0-10.5) H 03/27/20 10:11 RBC 2.68 10^6/uL (3.72-5.28) L 03/27/20 10:11 Hgb 8.2 g/dL (12.0-15.5) L D 03/27/20 10:11 Hct 23.5 % (36.0-47.0) L 03/27/20 10:11 MCV 88 fl (80-97) 03/27/20 10:11 MCH 30.5 pg (27.0-33.4) 03/27/20 10:11 MCHC 34.7 g/dL (32.0-36.0) 03/27/20 10:11 RDW 14.8 % (11.5-14.0) H 03/27/20 10:11 Plt Count 135 10^3/uL (150-450) L 03/27/20 10:11 Lymph % (Auto) 16.4 % (13-45) 03/25/20 21:28 [place] % (Auto) 8.4 % (3-13) 03/25/20 21:28 Eos % (Auto) 0.8 % (0-6) 03/25/20 21: Baso % (Auto) 0.3 % (0-2) 03/25/20 21:28 Absolute Neuts (auto) 7.5 10^3/uL (1.7-8.2) 03/25/20 21: Absolute Lymphs (auto) 1.7 10^3/uL (0.5-4.7) 03/25/20 21:28 Absolute Monos (auto) 0.9 10^3/uL (0.1-1.4) 03/25/20 21:28 Absolute Eos (auto) 0.1 10^3/uL (0.0-0.6) 03/25/20 21:28 Absolute Basos (auto) 0.0 10^3/uL (0.0-0.2) 03/25/20 21:28 Seg Neutrophils % 74.1 % (42-78) 03/25/20 21:28 Platelet Estimate Cancelled 03/27/20 07:28 Urine Color YELLOW 03/25/20 21:15 Urine Appearance SLIGHTLY-CLOUDY 03/25/20 21:15 Urine pH 6.0 (5.0-9.0) 03/25/20 21:15 Ur Specific [place] 1.023 03/25/20 21:15 Urine Protein 30 mg/dL (NEGATIVE) H 03/25/20 21:15 Urine Glucose (UA) NEGATIVE mg/dL (NEGATIVE) 03/25/20 21:15 Urine Ketones NEGATIVE mg/dL (NEGATIVE) 03/25/20 21:15 Urine Blood SMALL (NEGATIVE) H 03/25/20 21:15 Urine Nitrite NEGATIVE (NEGATIVE) 03/25/20 21:15 Urine Bilirubin NEGATIVE (NEGATIVE) 03/25/20 21:15 Urine Urobilinogen 2.0 mg/dL (<2.0) H 03/25/20 21:15 Ur Leukocyte Esterase NEGATIVE (NEGATIVE) 03/25/20 21:15 Urine Ascorbic Acid 40 (NEGATIVE) H 03/25/20 21:15 Urine Opiates Screen NEGATIVE 03/25/20 21:15 Urine Methadone Screen NEGATIVE 03/25/20 21:15 Ur Barbiturates Screen UNCONFIRMED POSITIVE 03/25/20 21:15 Ur Phencyclidine Scrn NEGATIVE 03/25/20 21:15 Ur Amphetamines Screen NEGATIVE 03/25/20 21:15 U Benzodiazepines Scrn NEGATIVE 03/25/20 21:15 Urine Cocaine Screen NEGATIVE 03/25/20 21:15 U Marijuana (THC) Screen UNCONFIRMED POSITIVE 03/25/20 21:15 RPR NONREACTIVE (NONREACTIVE) 03/25/20 21:28 Slides for Path Review Cancelled 03/27/20 07:28 Blood Type O NEGATIVE 03/27/20 07:28 Antibody Screen NEGATIVE 03/25/20 21:28 Screen NEGATIVE 03/27/20 07:28 Plan Plan of Treatment: follow up in one week at [facility] for incision check
[2020-03-28 11:04] VITALS: BP 122/66
== END 2020-03-28 12:47 | disposition home or self-care (01) | DRG 788 ==
LOC: LR 20:57 → 2N 03-26 09:29
PROVIDERS: ADMIT Obstetrics & Gynecology; ATTEND Obstetrics & Gynecology
PROC: 10D00Z1 Extraction of Products of Conception, Low, Open Approach (ICD-10-PCS; principal; 2020-03-26)
DX: O32.8XX0 Maternal care for other malpresentation of fetus, not applicable or unspecified (principal); O24.425 Gestational diabetes mellitus in childbirth, controlled by oral hypoglycemic drugs; O26.893 Other specified pregnancy related conditions, third trimester; Z67.41 Type O blood, Rh negative; Z37.0 Single live birth; Z3A.39 39 weeks gestation of pregnancy
CPT/HCPCS: 1961; 36415; 80307; 80349; 81005; 85025; 85027; 85461; 86592; 86850; 86900; 86901; 94760; 94799; 99140; G0480; J0131; J0690; J1885; J2250; J2270; J2405; J2590; J2704; J2790; J3010; J3490